=== PATIENT | male | born 1985 | race African-American/Black ===

== ENCOUNTER 2016-09-06 18:50 | Emergency (ER) | payer MEDICAID ==
[~2016-09-06] VITALS: Ht 175.3 cm; Wt 84.0 kg
[~2016-09-06 18:50] MED LIST: KEPP500 PO; PHEN100C4 PO
[2016-09-06] MEDS ORDERED: SODIUM CHLORIDE 0.9% 1,000 ML IV ONE (19:34)
[2016-09-06] MEDS ORDERED: LORAZEPAM 2MG/ML CPJ IV STA (19:34)
[2016-09-06] MEDS ORDERED: DIPHENHYDRAMINE 50MG/ML VIAL IV ONE (20:30)
[2016-09-06] MEDS ORDERED: HALOPERIDOL LACTATE 5MG/ML VIAL IM ONE (20:30)
[2016-09-06 20:34] LABS: BASOPHILS % 0.9 % (0.0-2.0); EOSINOPHILS % 1.6 % (0.0-5.0); HEMATOCRIT. 43.1 % (42.0-52.0); HEMOGLOBIN. 14.5 g/dL (14.0-18.0); LYMPHOCYTES % 25.8 % (20.0-50.0); MEAN CORPUSCULAR HEMOGLOBIN 31.3 pg (28.0-32.0); MEAN CORPUSCULAR VOLUME 92.8 fL (80.0-94.0); MEAN PLATELET VOLUME 7.9 fl (7.4-10.4); MONOCYTES % 8.8 % (2.0-8.0); NEUTROPHILS % 62.9 % (40.0-76.0); PLATELET 252 x1000/uL (130-400); RED BLOOD CELL COUNT 4.64 mill/uL (4.7-6.1); RED CELL DISTRIBUTION WIDTH 14.5 % (11.6-14.6)
[2016-09-06 20:39] LABS: INR 1.1; PROTHROMBIN TIME 11.1 sec
[2016-09-06 20:40] LABS: CHLORIDE 104 mEq/L (98-107)
[2016-09-06 20:42] LABS: CARBON DIOXIDE 26 mEq/L (21-32)
[2016-09-06 20:47] LABS: CREATINE KINASE 271 IU/L (39-308); ETHANOL BLOOD < 10 mg/dL
[2016-09-06] MEDS ORDERED: PHENYTOIN SODIUM 1,000 MG in SODIUM CHLORIDE 0.9% 100 ML IV ONE (21:00)
[2016-09-06] MEDS ORDERED: SODIUM CHLORIDE 0.9% 1000ML BAG (SEPSIS BOLUS) IV ONE (21:00)
[2016-09-06] MEDS ORDERED: LORAZEPAM 2MG/ML CPJ IV ONE (21:00)
[2016-09-06 22:28] LABS: CLARITY URINE CLEAR (CLEAR); COLOR URINE YELLOW (YELLOW); KETONES URINE NEGATIVE (NEGATIVE); LEUKOCYTE ESTERASE URINE 1+ (NEGATIVE); NITRITE URINE NEGATIVE (NEGATIVE); OCCULT BLOOD URINE 2+ (NEGATIVE); PH URINE 6.5 (4.5-8.0); PROTEIN URINE 1+ (NEGATIVE); SPECIFIC GRAVITY URINE 1.026 (1.005-1.030)
[2016-09-06 22:38] LABS: *AMPHETAMINES SCREEN URINE PRESUMTIVE POSITIVE (NEGATIVE); *BARBITURATES SCREEN URINE NEGATIVE (NEGATIVE); *BENZODIAZEPINES SCREEN URINE NEGATIVE (NEGATIVE); *COCAINE SCREEN URINE NEGATIVE (NEGATIVE); CANNABINOID URINE SCREEN PRESUMTIVE POSITIVE (NEGATIVE); METHADONE URINE SCREEN NEGATIVE (NEGATIVE); OPIATES URINE SCREEN NEGATIVE (NEGATIVE); PHENCYCLIDINE URINE SCREEN PRESUMTIVE POSITIVE (NEGATIVE)
[2016-09-06] MEDS ORDERED: CEFTRIAXONE 1 G PREMIX 50 ML IV ONE (23:45)
[2016-09-07] MEDS ORDERED: OLANZAPINE 10 MG/VIAL IM ONE (09:00)
[2016-09-07] MEDS ORDERED: LORAZEPAM 2MG/ML CPJ IM PRN (09:00)
[2016-09-07 18:34] VITALS: BP 113/68
== END 2016-09-07 19:33 | disposition home or self-care (01) ==
LOC: ER 19:44
DX: F22 Delusional disorders (principal); F16.10 Hallucinogen abuse, uncomplicated; F15.10 Other stimulant abuse, uncomplicated; F12.10 Cannabis abuse, uncomplicated; N39.0 Urinary tract infection, site not specified; R78.89 Finding of other specified substances, not normally found in blood; G40.909 Epilepsy, unspecified, not intractable, without status epilepticus; F17.200 Nicotine dependence, unspecified, uncomplicated; Z91.19 Patient's noncompliance with other medical treatment and regimen; Z88.6 Allergy status to analgesic agent
CPT/HCPCS: 36415; 71010; 80053; 80185; 80305; 80307; 80329; 81001; 82550; 83605; 85025; 85610; 87040; 93005; 96361; 96365; 96366; 96367; 96372; 96375; 99285; G0482; J0696; J1165; J1200; J1630; J2060; J3490; Z7610; J7030; J7050

== ENCOUNTER 2016-09-20 11:36 | Emergency (ER) | payer MEDICAID ==
[~2016-09-20] VITALS: Ht 175.3 cm; Wt 82.0 kg
[2016-09-20 11:50] VITALS: BP 128/74
== END 2016-09-20 13:24 | disposition home or self-care (01) ==
LOC: ER 13:12
DX: B86 Scabies (principal); J45.909 Unspecified asthma, uncomplicated; F17.200 Nicotine dependence, unspecified, uncomplicated; F12.10 Cannabis abuse, uncomplicated; Z88.6 Allergy status to analgesic agent; Z88.8 Allergy status to other drugs, medicaments and biological substances
CPT/HCPCS: 99282

== ENCOUNTER 2019-12-16 12:02 | Emergency (ER) | payer MEDICAID ==
[~2019-12-16] VITALS: Ht 175.3 cm; Wt 120.0 kg
[2019-12-16] MEDS ORDERED: FAMOTIDINE 20MG/2ML VIAL IV STA (12:22)
[2019-12-16] MEDS ORDERED: ONDANSETRON HCL 4MG/2ML INJ IV STA (12:22)
[2019-12-16] MEDS ORDERED: SODIUM CHLORIDE 0.9% 500 ML IV ONE (12:30)
[2019-12-16 13:04] LABS: BASOPHILS % 0.9 % (0.0-2.0); EOSINOPHILS % 0.8 % (0.0-5.0); HEMATOCRIT. 46.4 % (42.0-52.0); HEMOGLOBIN. 15.6 g/dL (14.0-18.0); LYMPHOCYTES % 28.3 % (20.0-50.0); MEAN CORPUSCULAR HEMOGLOBIN 31.6 pg (28.0-32.0); MEAN PLATELET VOLUME 9.1 fl (7.4-10.4); MONOCYTES % 12.5 % (2.0-8.0); NEUTROPHILS % 57.5 % (40.0-76.0); PLATELET 242 x1000/uL (130-400); RED BLOOD CELL COUNT 4.93 mill/uL (4.7-6.1); RED CELL DISTRIBUTION WIDTH 13.9 % (11.6-14.6)
[2019-12-16 13:14] LABS: CHLORIDE 99 mEq/L (98-107)
[2019-12-16 13:24] LABS: ETHANOL BLOOD < 10 mg/dL
[2019-12-16 15:07] VITALS: BP 140/92
== END 2019-12-16 15:09 | disposition home or self-care (01) ==
LOC: ER 12:15
DX: K29.00 Acute gastritis without bleeding (principal); F12.10 Cannabis abuse, uncomplicated; E78.00 Pure hypercholesterolemia, unspecified; J45.909 Unspecified asthma, uncomplicated; Z88.6 Allergy status to analgesic agent; Z79.899 Other long term (current) drug therapy
CPT/HCPCS: 36415; 70450; 74176; 80053; 80185; 80320; 83690; 85025; 93005; 96361; 96374; 96375; 99285; J2405; J3490; J7030; G0480

== ENCOUNTER 2020-02-04 18:13 | Emergency (ER) | payer MEDICAID ==
[~2020-02-04] VITALS: Ht 180.3 cm; Wt 108.0 kg
[~2020-02-04 18:13] MED LIST changes: +ALPR1TAB2 PO; +CARB100T4 PO; -KEPP500 PO
[2020-02-04 18:22] VITALS: BP 146/87
== END 2020-02-04 18:55 | disposition left against medical advice (07) ==
LOC: ER 18:13
DX: Z53.21 Procedure and treatment not carried out due to patient leaving prior to being seen by health care provider (principal)

== ENCOUNTER 2020-02-29 21:00 | Emergency (ER) | payer MEDICAID ==
[~2020-02-29] VITALS: Ht 175.3 cm; Wt 95.0 kg
[2020-02-29 21:11] VITALS: BP 137/95
== END 2020-03-01 02:32 | disposition left against medical advice (07) ==
LOC: ER 21:00
DX: R00.0 Tachycardia, unspecified (principal); Z53.21 Procedure and treatment not carried out due to patient leaving prior to being seen by health care provider
CPT/HCPCS: 93005

== ENCOUNTER 2020-04-16 11:28 | Emergency (ER) | payer MEDICAID ==
[~2020-04-16] VITALS: Ht 175.3 cm; Wt 97.0 kg
[~2020-04-16 11:28] MED LIST changes: +KEPPSOL GT; +METO-293 MT; +OMEP20CA14 MT
[2020-04-16] MEDS ORDERED: SODIUM CHLORIDE 0.9% 1,000 ML IV ONE (12:15)
[2020-04-16] MEDS ORDERED: LORAZEPAM 2MG/ML CPJ IV ONE (13:15)
[2020-04-16] MEDS ORDERED: LEVETIRACETAM 500MG PREMIX 100 ML IV ONE (13:15)
[2020-04-16 13:46] LABS: BASOPHILS % 0.5 % (0.0-2.0); EOSINOPHILS % 0.1 % (0.0-5.0); HEMATOCRIT. 43.8 % (42.0-52.0); HEMOGLOBIN. 14.6 g/dL (14.0-18.0); LYMPHOCYTES % 15.8 % (20.0-50.0); MEAN CORPUSCULAR HEMOGLOBIN 31.4 pg (28.0-32.0); MEAN CORPUSCULAR VOLUME 93.9 fL (80.0-94.0); MEAN PLATELET VOLUME 8.5 fl (7.4-10.4); MONOCYTES % 10.9 % (2.0-8.0); NEUTROPHILS % 72.7 % (40.0-76.0); PLATELET 295 x1000/uL (130-400); RED BLOOD CELL COUNT 4.67 mill/uL (4.7-6.1); RED CELL DISTRIBUTION WIDTH 14.5 % (11.6-14.6)
[2020-04-16 13:56] LABS: CHLORIDE 102 mEq/L (98-107)
[2020-04-16 13:59] LABS: ETHANOL BLOOD < 10 mg/dL
[2020-04-16] MEDS ORDERED: FAMO-135 MT (14:21)
[2020-04-16] MEDS ORDERED: ONDA4TAB11 PO (14:21)
[2020-04-16 15:43] LABS: INR 1.1; PROTHROMBIN TIME 11.3 sec (9.6-11.0)
[2020-04-16] MEDS ORDERED: ONDANSETRON 4MG ODT PO ONE (17:15)
[2020-04-16 17:23] LABS: CLARITY URINE CLEAR (CLEAR); COLOR URINE YELLOW (YELLOW); KETONES URINE 1+ (NEGATIVE); LEUKOCYTE ESTERASE URINE TRACE (NEGATIVE); NITRITE URINE NEGATIVE (NEGATIVE); OCCULT BLOOD URINE NEGATIVE (NEGATIVE); PH URINE >=9.0 (4.5-8.0); PROTEIN URINE 1+ (NEGATIVE); SPECIFIC GRAVITY URINE 1.032 (1.005-1.030)
[2020-04-16 17:35] VITALS: BP 114/77
[2020-04-16] MEDS ORDERED: ACETAMINOPHEN 325MG TABLET PO ONE (17:45)
[2020-04-16] MEDS ORDERED: ONDANSETRON HCL 4MG/2ML INJ IV ONE (17:45)
[2020-04-16 18:09] LABS: *AMPHETAMINES SCREEN URINE NEGATIVE (NEGATIVE); *BARBITURATES SCREEN URINE NEGATIVE (NEGATIVE); *BENZODIAZEPINES SCREEN URINE NEGATIVE (NEGATIVE); *COCAINE SCREEN URINE NEGATIVE (NEGATIVE); METHADONE URINE SCREEN NEGATIVE (NEGATIVE); OPIATES URINE SCREEN NEGATIVE (NEGATIVE)
[2020-04-16 18:10] LABS: CANNABINOID URINE SCREEN PRESUMTIVE POSITIVE (NEGATIVE); PHENCYCLIDINE URINE SCREEN NEGATIVE (NEGATIVE)
[2020-04-17] MEDS ORDERED: ONDA4TAB50 MT (04:56)
[2020-04-17] MEDS ORDERED: FAMO40TA7 MT (04:56)
[2020-04-17] MEDS ORDERED: FAMO40TA7 PO (05:27)
[2020-04-17] MEDS ORDERED: ONDA8TAB13 MT (05:27)
== END 2020-04-16 17:57 | disposition home or self-care (01) ==
LOC: ER 11:31 → CANBEDREQ 04-17 12:55
DX: R10.9 Unspecified abdominal pain (principal); G40.909 Epilepsy, unspecified, not intractable, without status epilepticus; E78.00 Pure hypercholesterolemia, unspecified; J45.909 Unspecified asthma, uncomplicated; F12.10 Cannabis abuse, uncomplicated; Z91.018 Allergy to other foods
CPT/HCPCS: 36415; 70450; 71045; 80053; 80185; 80305; 80320; 81003; 84484; 85025; 85610; 93005; 96365; 96375; 99285; J1953; J2060; J2405; J7030; Q0162; G0480

== ENCOUNTER 2020-04-16 22:50 | Emergency (ER) | payer MEDICAID ==
[~2020-04-16] VITALS: Ht 182.9 cm; Wt 95.0 kg
[~2020-04-16 22:50] MED LIST changes: +FAMO-135 MT; +ONDA4TAB11 PO
[2020-04-16] MEDS ORDERED: LEVETIRACETAM 1000MG PREMIX 100 ML IV ONE (23:15)
[2020-04-16] MEDS ORDERED: FAMOTIDINE 20MG TABLET PO ONE (23:15)
[2020-04-16] MEDS ORDERED: ONDANSETRON HCL 4MG/2ML INJ IV ONE (23:15)
[2020-04-16] MEDS ORDERED: SODIUM CHLORIDE 0.9% 1,000 ML IV ONE (23:15)
[2020-04-16 23:34] LABS: BASOPHILS % 0.7 % (0.0-2.0); EOSINOPHILS % 0.1 % (0.0-5.0); HEMATOCRIT. 44.7 % (42.0-52.0); HEMOGLOBIN. 15.1 g/dL (14.0-18.0); LYMPHOCYTES % 25.3 % (20.0-50.0); MEAN CORPUSCULAR HEMOGLOBIN 31.4 pg (28.0-32.0); MEAN CORPUSCULAR VOLUME 93.3 fL (80.0-94.0); MEAN PLATELET VOLUME 7.6 fl (7.4-10.4); MONOCYTES % 9.4 % (2.0-8.0); NEUTROPHILS % 64.5 % (40.0-76.0); PLATELET 286 x1000/uL (130-400); RED CELL DISTRIBUTION WIDTH 14.3 % (11.6-14.6)
[2020-04-16 23:41] LABS: CHLORIDE 103 mEq/L (98-107)
[2020-04-16 23:44] LABS: ETHANOL BLOOD < 10 mg/dL
[2020-04-17] MEDS ORDERED: ACETAMINOPHEN 325MG TABLET PO ONE (00:30)
[2020-04-17] MEDS ORDERED: POTASSIUM CHLORIDE 20MEQ TABLET SR PO ONE (01:45)
[2020-04-17] MEDS ORDERED: ONDANSETRON HCL 4MG/2ML INJ IV STA (02:25)
[2020-04-17] MEDS ORDERED: VISCOUS LIDOCAINE 2% 15 ML UDC PO STA (02:25)
[2020-04-17] MEDS ORDERED: MAGNESIUM/ALUMINUM HYDROXIDE/SIMETHICONE 30ML UDC PO STA (02:25)
[2020-04-17] MEDS ORDERED: KETOROLAC 15MG/ML VIAL IV ONE (02:30)
[2020-04-17 04:52] LABS: CLARITY URINE CLEAR (CLEAR); COLOR URINE DARK YELLOW (YELLOW); KETONES URINE 2+ (NEGATIVE); LEUKOCYTE ESTERASE URINE TRACE (NEGATIVE); NITRITE URINE NEGATIVE (NEGATIVE); OCCULT BLOOD URINE NEGATIVE (NEGATIVE); PH URINE 6.5 (4.5-8.0); PROTEIN URINE 1+ (NEGATIVE); SPECIFIC GRAVITY URINE 1.042 (1.005-1.030)
[2020-04-17] MEDS ORDERED: ONDA4TAB50 MT (04:56)
[2020-04-17] MEDS ORDERED: FAMO40TA7 MT (04:56)
[2020-04-17 05:05] LABS: *AMPHETAMINES SCREEN URINE NEGATIVE (NEGATIVE); *BARBITURATES SCREEN URINE NEGATIVE (NEGATIVE); *BENZODIAZEPINES SCREEN URINE NEGATIVE (NEGATIVE); *COCAINE SCREEN URINE NEGATIVE (NEGATIVE)
[2020-04-17 05:06] LABS: CANNABINOID URINE SCREEN PRESUMTIVE POSITIVE (NEGATIVE); METHADONE URINE SCREEN NEGATIVE (NEGATIVE); OPIATES URINE SCREEN NEGATIVE (NEGATIVE); PHENCYCLIDINE URINE SCREEN NEGATIVE (NEGATIVE)
[2020-04-17] MEDS ORDERED: FAMO40TA7 PO (05:27)
[2020-04-17] MEDS ORDERED: ONDA8TAB13 MT (05:27)
[2020-04-17 05:30] VITALS: BP 147/96
== END 2020-04-17 05:36 | disposition home or self-care (01) ==
LOC: ER 22:50
DX: R11.2 Nausea with vomiting, unspecified (principal); R56.9 Unspecified convulsions; F12.10 Cannabis abuse, uncomplicated; Z79.899 Other long term (current) drug therapy; Z91.018 Allergy to other foods
CPT/HCPCS: 36415; 80053; 80305; 80320; 81003; 85025; 93005; 96365; 96375; 96376; 99285; J1885; J1953; J2405; J7030; G0480

== ENCOUNTER 2020-05-19 08:02 | Inpatient (IN) | payer MEDICAID ==
[~2020-05-19] VITALS: Ht 180.3 cm; Wt 115.0 kg
[~2020-05-19 08:02] MED LIST changes: +FAMO40TA7 MT; +FAMO40TA7 PO; +ONDA4TAB50 MT; +ONDA8TAB13 MT
[2020-05-19] MEDS ORDERED: METOCLOPRAMIDE HCL 10MG/2ML VIAL IV STA (09:38)
[2020-05-19] MEDS ORDERED: FAMOTIDINE 20MG/2ML VIAL IV STA (09:38)
[2020-05-19] MEDS ORDERED: SODIUM CHLORIDE 0.9% 1,000 ML IV ONE (09:45)
[2020-05-19] MEDS ORDERED: LEVETIRACETAM 500MG PREMIX 100 ML IV STA (09:49)
[2020-05-19] MEDS ORDERED: LEVETIRACETAM 500MG PREMIX 100 ML IV ONE (10:00)
[2020-05-19 10:05] LABS: BASOPHILS % 0.9 % (0.0-2.0); EOSINOPHILS % 0.3 % (0.0-5.0); HEMATOCRIT. 48.6 % (42.0-52.0); HEMOGLOBIN. 16.1 g/dL (14.0-18.0); LYMPHOCYTES % 27.2 % (20.0-50.0); MEAN CORPUSCULAR HEMOGLOBIN 31.5 pg (28.0-32.0); MEAN CORPUSCULAR VOLUME 94.8 fL (80.0-94.0); MEAN PLATELET VOLUME 8.5 fl (7.4-10.4); MONOCYTES % 7.6 % (2.0-8.0); PLATELET 245 x1000/uL (130-400); RED BLOOD CELL COUNT 5.12 mill/uL (4.7-6.1); RED CELL DISTRIBUTION WIDTH 14.3 % (11.6-14.6)
[2020-05-19 10:09] LABS: CHLORIDE 101 mEq/L (98-107)
[2020-05-19 10:20] LABS: PHENOBARBITAL < 2.1 ug/mL (15.0-40.0); VALPROIC ACID < 3.0 ug/mL (50-100)
[2020-05-19 10:22] LABS: CARBAMAZEPINE < 0.5 ug/mL (4-12)
[2020-05-19 10:35] LABS: INR 1.1; PROTHROMBIN TIME 11.5 sec (9.6-11.0)
[2020-05-19] MEDS ORDERED: PHENYTOIN SODIUM 500 MG in SODIUM CHLORIDE 0.9% 50 ML IV ONE (11:30)
[2020-05-19 13:25] VITALS: BP 130/84
[2020-05-19] MEDS ORDERED: GUAIFENESIN 200MG/10ML SUGAR FREE UDC PO PRN (16:30)
[2020-05-19] MEDS ORDERED: FAMOTIDINE 20MG/2ML VIAL IV SCH (16:30)
[2020-05-19] MEDS ORDERED: LEVETIRACETAM 500 MG in SODIUM CHLORIDE 0.9% 100 ML IV SCH (16:30)
[2020-05-19] MEDS ORDERED: NA PHOS,M-B/NA PHOS,DI-BA ENEMA 118ML PR PRN (16:30)
[2020-05-19] MEDS ORDERED: DOCUSATE SODIUM 100MG CAPSULE PO PRN (16:30)
[2020-05-19] MEDS ORDERED: IPRATROPIUM/ALBUTEROL 0.5-3(2.5)MG/3ML NEB NEB PRN (16:30)
[2020-05-19] MEDS ORDERED: HYDROCODONE/ACETAMINOPHEN 5/325MG TABLET PO PRN (16:30)
[2020-05-19] MEDS ORDERED: DEXT 5%/0.45% NACL 1000ML 1,000 ML IV SCH (16:30)
[2020-05-19] MEDS ORDERED: DIPHENHYDRAMINE 50MG/ML VIAL IV PRN (16:30)
[2020-05-19] MEDS ORDERED: LORAZEPAM 2MG/ML CPJ IV PRN (16:30)
[2020-05-19] MEDS ORDERED: ONDANSETRON HCL 4MG/2ML INJ IV PRN (16:30)
[2020-05-19] MEDS ORDERED: ACETAMINOPHEN 650MG SUPP PR PRN (16:30)
[2020-05-19] MEDS ORDERED: ACETAMINOPHEN 325MG TABLET PO PRN (16:30)
[2020-05-19] MEDS ORDERED: CLONIDINE 0.1MG TABLET PO PRN (16:30)
[2020-05-19] MEDS ORDERED: MAGNESIUM/ALUMINUM HYDROXIDE/SIMETHICONE 30ML UDC PO PRN (16:30)
[2020-05-19] MEDS ORDERED: LEVETIRACETAM 500MG PREMIX 100 ML IV SCH (21:00)
[2020-05-19] MEDS ORDERED: PHENYTOIN SODIUM 100MG/2ML VIAL IV SCH (22:00)
== END 2020-05-19 15:00 | disposition home or self-care (01) | DRG 53 ==
LOC: ER 08:02 → 6EST 12:34 → ENRESERV 13:22
PROVIDERS: ADMIT Internal Medicine; ATTEND Internal Medicine
DX: R56.9 Unspecified convulsions (principal); K21.9 Gastro-esophageal reflux disease without esophagitis; I10 Essential (primary) hypertension; J45.909 Unspecified asthma, uncomplicated; Z91.018 Allergy to other foods; Z79.899 Other long term (current) drug therapy
CPT/HCPCS: 36415; 80053; 80156; 80165; 80184; 80185; 85025; 93005; 99285; J1165; J1953; J2765; J3490; J7030

== ENCOUNTER 2020-05-21 09:37 | Emergency (ER) | payer MEDICAID ==
[~2020-05-21] VITALS: Ht 175.3 cm; Wt 104.0 kg
[2020-05-21] MEDS: ONDANSETRON HCL 4MG/2ML INJ IV STA (09:56)
[2020-05-21 10:27] LABS: BASOPHILS % 0.6 % (0.0-2.0); EOSINOPHILS % 0.1 % (0.0-5.0); HEMATOCRIT. 46.8 % (42.0-52.0); HEMOGLOBIN. 15.9 g/dL (14.0-18.0); LYMPHOCYTES % 17.9 % (20.0-50.0); MEAN CORPUSCULAR HEMOGLOBIN 32.1 pg (28.0-32.0); MEAN CORPUSCULAR VOLUME 94.7 fL (80.0-94.0); MEAN PLATELET VOLUME 7.7 fl (7.4-10.4); MONOCYTES % 7.5 % (2.0-8.0); NEUTROPHILS % 73.9 % (40.0-76.0); PLATELET 266 x1000/uL (130-400); RED BLOOD CELL COUNT 4.94 mill/uL (4.7-6.1); RED CELL DISTRIBUTION WIDTH 14.1 % (11.6-14.6)
[2020-05-21 10:33] LABS: CHLORIDE 102 mEq/L (98-107)
[2020-05-21 10:36] LABS: INR 1.1; PROTHROMBIN TIME 11.4 sec (9.6-11.0)
[2020-05-21 10:37] LABS: ETHANOL BLOOD < 10 mg/dL
[2020-05-21] MEDS ORDERED: KCL 20MEQ/100ML PREMIX 100 ML IV SCH (12:00)
[2020-05-21] MEDS: ONDANSETRON HCL 4MG/2ML INJ IM ONE (12:40)
[2020-05-21] MEDS: FAMOTIDINE 20MG/2ML VIAL IV STA (12:40)
[2020-05-21] MEDS: SODIUM CHLORIDE 0.9% 1,000 ML IV ONE (12:40)
[2020-05-21] MEDS: MAGNESIUM/ALUMINUM HYDROXIDE/SIMETHICONE 30ML UDC PO ONE (12:40)
[2020-05-21] MEDS: PHENYTOIN SODIUM 100MG/2ML VIAL IV ONE (12:41)
[2020-05-21] MEDS: ONDANSETRON HCL 4MG/2ML INJ IV NR (14:44)
[2020-05-21] MEDS: PANTOPRAZOLE SODIUM 40 MG/VIAL IV NR (14:45)
[2020-05-21 19:30] VITALS: BP 129/79
== END 2020-05-21 20:13 ==
LOC: ER 10:12
DX: R10.13 Epigastric pain (principal); K92.0 Hematemesis; K21.9 Gastro-esophageal reflux disease without esophagitis; G40.909 Epilepsy, unspecified, not intractable, without status epilepticus; J45.909 Unspecified asthma, uncomplicated; I10 Essential (primary) hypertension; F12.10 Cannabis abuse, uncomplicated; F17.210 Nicotine dependence, cigarettes, uncomplicated; Z91.018 Allergy to other foods
CPT/HCPCS: 36415; 76705; 80053; 80185; 80320; 83690; 85025; 85610; 93005; 96361; 96372; 96374; 96375; 96376; 99285; C9113; J1165; J2405; J3490; J7030; Z7610; J3480; G0480

== ENCOUNTER 2020-06-01 12:20 | Emergency (ER) | payer MEDICAID ==
[~2020-06-01] VITALS: Ht 182.9 cm; Wt 100.0 kg
[2020-06-01] MEDS ORDERED: SODIUM CHLORIDE 0.9% 1,000 ML IV ONE (13:00)
[2020-06-01] MEDS ORDERED: LEVETIRACETAM 1000MG PREMIX 100 ML IV NR (13:00)
[2020-06-01 13:21] LABS: BASOPHILS % 0.8 % (0.0-2.0); EOSINOPHILS % 3.3 % (0.0-5.0); LYMPHOCYTES % 19.7 % (20.0-50.0); MEAN CORPUSCULAR HEMOGLOBIN 33.4 pg (28.0-32.0); MEAN PLATELET VOLUME 7.6 fl (7.4-10.4); MONOCYTES % 9.1 % (2.0-8.0); NEUTROPHILS % 67.1 % (40.0-76.0); PLATELET 177 x1000/uL (130-400); RED BLOOD CELL COUNT 4.48 mill/uL (4.7-6.1); RED CELL DISTRIBUTION WIDTH 14.4 % (11.6-14.6)
[2020-06-01 13:28] LABS: CHLORIDE 109 mEq/L (98-107)
[2020-06-01 13:33] LABS: ETHANOL BLOOD < 10 mg/dL
[2020-06-01 16:44] LABS: CLARITY URINE CLEAR (CLEAR); COLOR URINE YELLOW (YELLOW); KETONES URINE TRACE (NEGATIVE); LEUKOCYTE ESTERASE URINE TRACE (NEGATIVE); NITRITE URINE NEGATIVE (NEGATIVE); OCCULT BLOOD URINE NEGATIVE (NEGATIVE); PROTEIN URINE 1+ (NEGATIVE); UROBILINOGEN URINE 0.2 E.U./dL (0.2-1.0)
[2020-06-01 17:02] LABS: *AMPHETAMINES SCREEN URINE PRESUMTIVE POSITIVE (NEGATIVE); *BARBITURATES SCREEN URINE NEGATIVE (NEGATIVE); *BENZODIAZEPINES SCREEN URINE PRESUMTIVE POSITIVE (NEGATIVE); *COCAINE SCREEN URINE NEGATIVE (NEGATIVE); METHADONE URINE SCREEN NEGATIVE (NEGATIVE); OPIATES URINE SCREEN NEGATIVE (NEGATIVE)
[2020-06-01 17:03] LABS: CANNABINOID URINE SCREEN PRESUMTIVE POSITIVE (NEGATIVE); PHENCYCLIDINE URINE SCREEN NEGATIVE (NEGATIVE)
[2020-06-01] MEDS ORDERED: LEVE1000 MT (17:08)
[2020-06-01] MEDS ORDERED: PHEN100C4 PO (17:09)
[2020-06-01 17:30] VITALS: BP 124/82
== END 2020-06-01 17:30 | disposition home or self-care (01) ==
LOC: ER 12:25
DX: G40.909 Epilepsy, unspecified, not intractable, without status epilepticus (principal); K21.9 Gastro-esophageal reflux disease without esophagitis; I10 Essential (primary) hypertension; J45.909 Unspecified asthma, uncomplicated; F12.10 Cannabis abuse, uncomplicated; F17.210 Nicotine dependence, cigarettes, uncomplicated; Z91.018 Allergy to other foods
CPT/HCPCS: 36415; 80053; 80305; 80320; 81003; 84132; 85025; 96365; 99285; J1953; Z7610; G0480

== ENCOUNTER 2020-07-07 10:39 | Emergency (ER) | payer MEDICAID ==
[~2020-07-07] VITALS: Ht 175.3 cm; Wt 103.0 kg
[~2020-07-07 10:39] MED LIST changes: +LEVE1000 MT
[2020-07-07 11:00] VITALS: BP 122/60
[2020-07-07] MEDS ORDERED: METHYLPREDNISOLONE SOD SUCC 125 MG/2 ML VIAL IV STA (11:06)
[2020-07-07] MEDS ORDERED: ALBUTEROL (0.083%) 2.5MG/3ML NEB HHN STA (11:06)
[2020-07-07] MEDS ORDERED: IPRATROPIUM BROMIDE (0.02%) 0.5MG/2.5ML NEB HHN STA (11:06)
[2020-07-07] MEDS ORDERED: SODIUM CHLORIDE 0.9% 1,000 ML IV ONE (11:15)
[2020-07-07] MEDS ORDERED: LEVETIRACETAM 1000MG PREMIX 100 ML IV ONE (11:15)
[2020-07-07] MEDS ORDERED: PHENYTOIN SODIUM 1,000 MG in SODIUM CHLORIDE 0.9% 100 ML IV ONE (12:00)
[2020-07-07] MEDS ORDERED: LEVE1000 MT (14:35)
[2020-07-07] MEDS ORDERED: PHEN300C6 MT (14:35)
[2020-07-07] MEDS ORDERED: P50 MT (14:37)
[2020-07-07] MEDS ORDERED: ALBU6.7H9 INH (14:37)
== END 2020-07-07 15:13 | disposition home or self-care (01) ==
LOC: ER 10:39
DX: J45.901 Unspecified asthma with (acute) exacerbation (principal); G40.909 Epilepsy, unspecified, not intractable, without status epilepticus; K21.9 Gastro-esophageal reflux disease without esophagitis; I10 Essential (primary) hypertension; Z91.018 Allergy to other foods
CPT/HCPCS: 36415; 71045; 80185; 94640; 96365; 96367; 96375; 99284; J1165; J1953; J2930; J7030; J7040; J7050; Z7610

== ENCOUNTER 2020-07-20 03:01 | Emergency (ER) | payer MEDICAID ==
[~2020-07-20] VITALS: Ht 175.3 cm; Wt 92.0 kg
[~2020-07-20 03:01] MED LIST changes: +ALBU6.7H9 INH; +P50 MT; +PHEN300C6 MT
[2020-07-20] MEDS ORDERED: FAMOTIDINE 20MG/2ML VIAL IV STA (04:52)
[2020-07-20] MEDS ORDERED: MORPHINE SULFATE 4 MG/ML CPJ (NOT FOR IM USE) IV STA (04:52)
[2020-07-20] MEDS ORDERED: METOCLOPRAMIDE HCL 10MG/2ML VIAL IV STA (04:52)
[2020-07-20] MEDS ORDERED: SODIUM CHLORIDE 0.9% 1,000 ML IV ONE (05:00)
[2020-07-20 05:21] LABS: BASOPHILS % 0.9 % (0.0-2.0); HEMATOCRIT. 42.6 % (42.0-52.0); HEMOGLOBIN. 14.1 g/dL (14.0-18.0); LYMPHOCYTES % 22.5 % (20.0-50.0); MEAN CORPUSCULAR VOLUME 93.5 fL (80.0-94.0); MEAN PLATELET VOLUME 7.4 fl (7.4-10.4); MONOCYTES % 13.8 % (2.0-8.0); NEUTROPHILS % 61.8 % (40.0-76.0); PLATELET 269 x1000/uL (130-400); RED BLOOD CELL COUNT 4.56 mill/uL (4.7-6.1); RED CELL DISTRIBUTION WIDTH 14.5 % (11.6-14.6)
[2020-07-20 05:28] LABS: CHLORIDE 102 mEq/L (98-107)
[2020-07-20] MEDS ORDERED: ONDA4TAB5 MT (06:26)
[2020-07-20] MEDS ORDERED: ONDANSETRON HCL 4MG/2ML INJ IV ONE (06:45)
[2020-07-20 08:08] VITALS: BP 118/66
== END 2020-07-20 08:21 | disposition home or self-care (01) ==
LOC: ER 03:01
DX: R10.13 Epigastric pain (principal); I10 Essential (primary) hypertension; G40.909 Epilepsy, unspecified, not intractable, without status epilepticus; K21.9 Gastro-esophageal reflux disease without esophagitis; J45.909 Unspecified asthma, uncomplicated; Z87.19 Personal history of other diseases of the digestive system; Z91.018 Allergy to other foods
CPT/HCPCS: 36415; 80053; 83690; 85025; 96361; 96374; 96375; 99284; J2270; J2405; J2765; J3490; J7030

== ENCOUNTER 2020-08-04 06:22 | Emergency (ER) | payer MEDICAID ==
[~2020-08-04] VITALS: Ht 154.9 cm; Wt 90.0 kg
[~2020-08-04 06:22] MED LIST changes: +ONDA4TAB5 MT
[2020-08-04] MEDS ORDERED: ONDANSETRON HCL 4MG/2ML INJ IV STA (06:46)
[2020-08-04] MEDS ORDERED: MORPHINE SULFATE 4 MG/ML CPJ (NOT FOR IM USE) IV STA (06:46)
[2020-08-04] MEDS ORDERED: SODIUM CHLORIDE 0.9% 1,000 ML IV ONE (07:00)
[2020-08-04] MEDS ORDERED: LEVETIRACETAM 1000MG PREMIX 100 ML IV ONE (07:00)
[2020-08-04 08:03] LABS: BASOPHILS % 0.6 % (0.0-2.0); EOSINOPHILS % 0.1 % (0.0-5.0); HEMATOCRIT. 46.8 % (42.0-52.0); HEMOGLOBIN. 15.8 g/dL (14.0-18.0); LYMPHOCYTES % 19.8 % (20.0-50.0); MEAN CORPUSCULAR HEMOGLOBIN 31.7 pg (28.0-32.0); MEAN CORPUSCULAR VOLUME 93.7 fL (80.0-94.0); MEAN PLATELET VOLUME 7.7 fl (7.4-10.4); MONOCYTES % 10.4 % (2.0-8.0); NEUTROPHILS % 69.1 % (40.0-76.0); PLATELET 296 x1000/uL (130-400); RED BLOOD CELL COUNT 4.99 mill/uL (4.7-6.1); RED CELL DISTRIBUTION WIDTH 14.4 % (11.6-14.6)
[2020-08-04 08:09] LABS: CHLORIDE 99 mEq/L (98-107)
[2020-08-04 08:12] LABS: ETHANOL BLOOD < 10 mg/dL
[2020-08-04] MEDS ORDERED: PHENYTOIN SODIUM 1,000 MG in SODIUM CHLORIDE 0.9% 100 ML IV ONE (08:30)
[2020-08-04 09:28] LABS: CLARITY URINE CLEAR (CLEAR); COLOR URINE DARK YELLOW (YELLOW); KETONES URINE 3+ (NEGATIVE); LEUKOCYTE ESTERASE URINE 1+ (NEGATIVE); NITRITE URINE NEGATIVE (NEGATIVE); OCCULT BLOOD URINE NEGATIVE (NEGATIVE); PH URINE 8.5 (4.5-8.0); PROTEIN URINE 2+ (NEGATIVE); SPECIFIC GRAVITY URINE 1.036 (1.005-1.030)
[2020-08-04] MEDS ORDERED: LORAZEPAM 2MG/ML CPJ IV ONE (09:30)
[2020-08-04] MEDS ORDERED: ONDANSETRON HCL 4MG/2ML INJ IV ONE (09:30)
[2020-08-04 09:44] LABS: *AMPHETAMINES SCREEN URINE NEGATIVE (NEGATIVE); *BARBITURATES SCREEN URINE NEGATIVE (NEGATIVE); *BENZODIAZEPINES SCREEN URINE NEGATIVE (NEGATIVE); *COCAINE SCREEN URINE NEGATIVE (NEGATIVE); METHADONE URINE SCREEN NEGATIVE (NEGATIVE); OPIATES URINE SCREEN PRESUMTIVE POSITIVE (NEGATIVE)
[2020-08-04] MEDS ORDERED: PHEN300C6 MT (09:44)
[2020-08-04] MEDS ORDERED: ONDA4TAB5 MT (09:44)
[2020-08-04] MEDS ORDERED: LEVE1000 MT (09:44)
[2020-08-04] MEDS ORDERED: OMEP20CA14 MT (09:44)
[2020-08-04 09:45] LABS: CANNABINOID URINE SCREEN PRESUMTIVE POSITIVE (NEGATIVE); PHENCYCLIDINE URINE SCREEN NEGATIVE (NEGATIVE)
[2020-08-04 10:17] VITALS: BP 126/70
== END 2020-08-04 10:25 | disposition home or self-care (01) ==
LOC: ER 06:33
DX: G40.909 Epilepsy, unspecified, not intractable, without status epilepticus (principal); R10.13 Epigastric pain; R11.10 Vomiting, unspecified; J45.909 Unspecified asthma, uncomplicated; K21.9 Gastro-esophageal reflux disease without esophagitis; F41.9 Anxiety disorder, unspecified; F15.10 Other stimulant abuse, uncomplicated; Z91.14 Patient's other noncompliance with medication regimen; Z91.018 Allergy to other foods
CPT/HCPCS: 36415; 80053; 80185; 80305; 80320; 81003; 83690; 85025; 96365; 96375; 96376; 99284; J1165; J1953; J2060; J2270; J2405; J7030; J7050; Z7610; G0480

== ENCOUNTER 2021-01-04 02:17 | Inpatient (IN) | payer MEDICAID ==
[~2021-01-04] VITALS: Ht 170.2 cm; Wt 86.0 kg
[2021-01-04] MEDS ORDERED: MORPHINE SULFATE 4 MG/ML CPJ (NOT FOR IM USE) IV STA (04:20)
[2021-01-04] MEDS ORDERED: ONDANSETRON HCL 4MG/2ML INJ IV STA (04:20)
[2021-01-04] MEDS ORDERED: LEVETIRACETAM 500MG PREMIX 100 ML IV ONE ×2 (04:30→06:45)
[2021-01-04] MEDS ORDERED: LORAZEPAM 2MG/ML CPJ IV ONE ×2 (04:30→06:45)
[2021-01-04] MEDS ORDERED: SODIUM CHLORIDE 0.9% 1,000 ML IV ONE (04:30)
[2021-01-04 04:43] LABS: BASOPHILS % 0.7 % (0.0-2.0); EOSINOPHILS % 0.1 % (0.0-5.0); HEMATOCRIT. 53.6 % (42.0-52.0); HEMOGLOBIN. 16.4 g/dL (14.0-18.0); LYMPHOCYTES % 30.9 % (20.0-50.0); MEAN CORPUSCULAR HEMOGLOBIN 32.5 pg (28.0-32.0); MEAN CORPUSCULAR VOLUME 106.4 fL (80.0-94.0); MEAN PLATELET VOLUME 8.6 fl (7.4-10.4); NEUTROPHILS % 61.3 % (40.0-76.0); PLATELET 275 x1000/uL (130-400); RED BLOOD CELL COUNT 5.04 mill/uL (4.7-6.1)
[2021-01-04 05:15] LABS: CHLORIDE 108 mEq/L (98-107)
[2021-01-04] MEDS ORDERED: PHEN100C4 MT (05:56)
[2021-01-04] MEDS ORDERED: LEVE1000 MT (05:56)
[2021-01-04] MEDS ORDERED: ACETAMINOPHEN 650MG/20.3ML UDC GT PRN (11:00)
[2021-01-04] MEDS ORDERED: CLONIDINE 0.1MG TABLET PO PRN (11:00)
[2021-01-04] MEDS ORDERED: IPRATROPIUM/ALBUTEROL 0.5-3(2.5)MG/3ML NEB NEB PRN (11:00)
[2021-01-04] MEDS ORDERED: DIPHENHYDRAMINE 50MG/ML VIAL IV PRN (11:00)
[2021-01-04] MEDS ORDERED: ACETAMINOPHEN 650MG SUPP PR PRN (11:00)
[2021-01-04] MEDS ORDERED: MAGNESIUM/ALUMINUM HYDROXIDE/SIMETHICONE 30ML UDC PO PRN (11:00)
[2021-01-04] MEDS ORDERED: NA PHOS,M-B/NA PHOS,DI-BA ENEMA 118ML PR PRN (11:00)
[2021-01-04] MEDS ORDERED: NALOXONE HCL 0.4MG/ML VIAL IV PRN (11:30)
[2021-01-04 12:20] LABS: BG BASE EXCESS -2.2 mmol/L (-2.0-2.0); BG CARBOXYHEMOGLOBIN 0.8 % (0.5-1.5); BG DEOXYHEMOGLOBIN 3.6 % (0.0-5.0); BG FRACTION INSPIRED OXYGEN 21; BG HCO3 ACT 22.2 mmol/L (22.0-26.0); BG METHEMOGLOBIN 0.4 % (0.0-1.5); BG OXYGEN SATURATION 96.4 % (92.0-98.5); BG OXYHEMOGLOBIN 95.2 % (94.0-97.0); BG PCO2 37.4 mmHg (35.0-45.0); BG PH 7.392 (7.350-7.450); BG PO2 88.9 mmHg (75.0-100.0); BG SAMPLE SITE LEFT BRACHIAL; BG TOTAL HEMOGLOBIN 14.7 g/dL (12.0-18.0); BG VENT MODE ROOM AIR
[2021-01-04] MEDS: PIPERACILLIN/TAZOBACTAM 3.375 G in DEXTROSE 5% WATER 50 ML IV SCH ×2 (13:31→20:06)
[2021-01-04] MEDS: HYDROCODONE/ACETAMINOPHEN 5/325MG TABLET PO PRN ×2 (13:33→20:06)
[2021-01-04] MEDS: ENOXAPARIN 40MG/0.4ML SYR SUBCUT SCH (13:33)
[2021-01-04] MEDS: DEXT 5%/0.45% NACL 1000ML 1,000 ML IV SCH (13:40)
[2021-01-04 15:08] LABS: CLARITY URINE TURBID (CLEAR); COLOR URINE YELLOW (YELLOW); KETONES URINE 2+ (NEGATIVE); LEUKOCYTE ESTERASE URINE NEGATIVE (NEGATIVE); NITRITE URINE NEGATIVE (NEGATIVE); OCCULT BLOOD URINE NEGATIVE (NEGATIVE); PH URINE 5.5 (4.5-8.0); PROTEIN URINE TRACE (NEGATIVE); SPECIFIC GRAVITY URINE 1.021 (1.005-1.030); UROBILINOGEN URINE 0.2 E.U./dL (0.2-1.0)
[2021-01-04 15:14] LABS: CHLORIDE 106 mEq/L (98-107); INR 1.1; PROTHROMBIN TIME 11.4 sec (9.6-11.0)
[2021-01-04 15:23] LABS: CREATINE KINASE 633 IU/L (39-308)
[2021-01-04 15:25] LABS: CREATINE KINASE MB FRACTION 3.8 ng/mL (0.5-3.6)
[2021-01-04 15:52] LABS: *BARBITURATES SCREEN URINE NEGATIVE (NEGATIVE); *BENZODIAZEPINES SCREEN URINE NEGATIVE (NEGATIVE); *COCAINE SCREEN URINE PRESUMTIVE POSITIVE (NEGATIVE); OPIATES URINE SCREEN NEGATIVE (NEGATIVE); PHENCYCLIDINE URINE SCREEN NEGATIVE (NEGATIVE)
[2021-01-04 15:53] LABS: CANNABINOID URINE SCREEN PRESUMTIVE POSITIVE (NEGATIVE)
[2021-01-04 15:58] LABS: *AMPHETAMINES SCREEN URINE NEGATIVE (NEGATIVE)
[2021-01-04 15:59] LABS: METHADONE URINE SCREEN NEGATIVE (NEGATIVE)
[2021-01-04] MEDS ORDERED: LEVETIRACETAM 500 MG in SODIUM CHLORIDE 0.9% 100 ML IV SCH (18:00)
[2021-01-04] MEDS: FOLIC ACID 1MG TABLET PO SCH (18:26)
[2021-01-04] MEDS: ONDANSETRON HCL 4MG/2ML INJ IV PRN (18:26)
[2021-01-04] MEDS: THIAMINE HCL 100MG TABLET PO SCH (18:27)
[2021-01-04] MEDS: MULTIVITAMINS,THER W-MINERALS TABLET PO SCH (18:27)
[2021-01-04 19:30] VITALS: BP 98/46
[2021-01-04 20:00] VITALS: BP 102/46
[2021-01-04] MEDS: LEVETIRACETAM 500MG PREMIX 100 ML IV SCH (20:58)
[2021-01-04] MEDS: PHENYTOIN SODIUM EXTENDED 100MG CAPSULE PO SCH (20:58)
[2021-01-04] MEDS: FAMOTIDINE 20MG TABLET PO SCH (20:58)
[2021-01-04 23:55] VITALS: BP 106/52
[2021-01-05 01:54] LABS: CREATINE KINASE MB FRACTION 5.7 ng/mL (0.5-3.6)
[2021-01-05 02:04] LABS: CREATINE KINASE 1122 IU/L (39-308)
[2021-01-05 04:00] VITALS: BP 115/60
[2021-01-05] MEDS: PIPERACILLIN/TAZOBACTAM 3.375 G in DEXTROSE 5% WATER 50 ML IV SCH ×3 (04:51→23:31)
[2021-01-05] MEDS: DEXT 5%/0.45% NACL 1000ML 1,000 ML IV SCH ×2 (05:13→15:04)
[2021-01-05] MEDS: PHENYTOIN SODIUM EXTENDED 100MG CAPSULE PO SCH ×3 (06:09→21:00)
[2021-01-05] MEDS: MULTIVITAMINS,THER W-MINERALS TABLET PO SCH (09:00)
[2021-01-05] MEDS: FOLIC ACID 1MG TABLET PO SCH (09:00)
[2021-01-05] MEDS: THIAMINE HCL 100MG TABLET PO SCH (09:00)
[2021-01-05] MEDS: HYDROCODONE/ACETAMINOPHEN 5/325MG TABLET PO PRN ×2 (11:01→15:03)
[2021-01-05] MEDS: ONDANSETRON HCL 4MG/2ML INJ IV PRN (11:01)
[2021-01-05 11:44] LABS: CHLORIDE 106 mEq/L (98-107)
[2021-01-05 11:53] LABS: HDL CHOLESTEROL 61 mg/dL (40-59); LDL CHOLESTEROL 107 mg/dL (5-100); T4 FREE 0.91 ng/dL (0.76-1.46)
[2021-01-05 12:00] VITALS: BP 120/63
[2021-01-05] MEDS: ENOXAPARIN 40MG/0.4ML SYR SUBCUT SCH (12:00)
[2021-01-05] MEDS: LEVETIRACETAM 500MG PREMIX 100 ML IV SCH ×2 (13:49→23:53)
[2021-01-05] MEDS: ONDANSETRON HCL 4MG/2ML INJ IV NR ×2 (15:10→21:00)
[2021-01-05 16:00] VITALS: BP 123/67
[2021-01-05] MEDS: LORAZEPAM 2MG/ML CPJ IV PRN (16:13)
[2021-01-05 20:00] VITALS: BP 122/77
[2021-01-05] MEDS: FAMOTIDINE 20MG TABLET PO SCH (21:00)
[2021-01-05] MEDS: MORPHINE SULFATE 2 MG/ML CPJ (NOT FOR IM USE) IV PRN (23:32)
[2021-01-06] VITALS: BP 132/72
[2021-01-06] MEDS: LORAZEPAM 2MG/ML CPJ IV PRN (01:19)
[2021-01-06 04:00] VITALS: BP 128/77
[2021-01-06] MEDS: PIPERACILLIN/TAZOBACTAM 3.375 G in DEXTROSE 5% WATER 50 ML IV SCH ×2 (05:49→06:49)
[2021-01-06] MEDS: PHENYTOIN SODIUM EXTENDED 100MG CAPSULE PO SCH (06:50)
[2021-01-06] MEDS: DEXT 5%/0.45% NACL 1000ML 1,000 ML IV SCH (06:51)
[2021-01-06 08:00] VITALS: BP 130/77
[2021-01-06] MEDS: ONDANSETRON HCL 4MG/2ML INJ IV PRN (08:48)
[2021-01-06] MEDS: LEVETIRACETAM 500MG PREMIX 100 ML IV SCH (08:48)
[2021-01-06 08:55] VITALS: BP 130/77
[2021-01-06] MEDS: MORPHINE SULFATE 2 MG/ML CPJ (NOT FOR IM USE) IV PRN (08:55)
[2021-01-06] MEDS: THIAMINE HCL 100MG TABLET PO SCH (09:00)
[2021-01-06] MEDS: MULTIVITAMINS,THER W-MINERALS TABLET PO SCH (09:00)
[2021-01-06] MEDS: FOLIC ACID 1MG TABLET PO SCH (09:00)
== END 2021-01-06 10:35 | disposition left against medical advice (07) | DRG 241 ==
LOC: ER 02:17 → EDBEDREQTM 07:43 → MICUSO 08:46 → EDBEDREQTM 08:49 → EDBEDREQ 08:49 → 8WST 17:55
PROVIDERS: ADMIT Internal Medicine; ATTEND Internal Medicine
PROC: 4A10X4Z Monitoring of Central Nervous Electrical Activity, External Approach (ICD-10-PCS; principal; 2021-01-06)
DX: K29.70 Gastritis, unspecified, without bleeding (principal); M62.82 Rhabdomyolysis; G40.909 Epilepsy, unspecified, not intractable, without status epilepticus; K52.9 Noninfective gastroenteritis and colitis, unspecified; E83.52 Hypercalcemia; F12.90 Cannabis use, unspecified, uncomplicated; F14.90 Cocaine use, unspecified, uncomplicated; Z20.822 Contact with and (suspected) exposure to COVID-19; F17.210 Nicotine dependence, cigarettes, uncomplicated; J45.909 Unspecified asthma, uncomplicated; R73.9 Hyperglycemia, unspecified; F41.9 Anxiety disorder, unspecified; F10.139 Alcohol abuse with withdrawal, unspecified; Y90.9 Presence of alcohol in blood, level not specified; Z79.899 Other long term (current) drug therapy; Z82.49 Family history of ischemic heart disease and other diseases of the circulatory system; Z91.018 Allergy to other foods
CPT/HCPCS: 36415; 36600; 70551; 74018; 76700; 80048; 80053; 80061; 80185; 80305; 81003; 82375; 82542; 82550; 82553; 82805; 84439; 84443; 84484; 85025; 87426; 93306; 93970; 95816; 99285; C1893; J1650; J1953; J2060; J2270; J2405; J2543; J7030; J7050; J7060

== ENCOUNTER 2021-01-10 08:32 | Emergency (ER) | payer MEDICAID ==
[~2021-01-10] VITALS: Ht 175.3 cm; Wt 100.0 kg
[~2021-01-10 08:32] MED LIST changes: +PHEN100C4 MT
[2021-01-10 08:56] VITALS: BP 137/90
== END 2021-01-10 10:28 | disposition left against medical advice (07) ==
LOC: ER 08:32
DX: R10.9 Unspecified abdominal pain (principal); Z53.21 Procedure and treatment not carried out due to patient leaving prior to being seen by health care provider
CPT/HCPCS: 93005

== ENCOUNTER 2021-04-24 10:48 | Emergency (ER) | payer MEDICAID ==
[~2021-04-24] VITALS: Ht 185.4 cm; Wt 91.0 kg
[2021-04-24 11:15] VITALS: BP 139/93
[2021-04-24] MEDS ORDERED: LEVETIRACETAM 1000MG PREMIX 100 ML IV ONE (11:15)
[2021-04-24 11:34] LABS: CHLORIDE 107 mEq/L (98-107)
[2021-04-24 11:38] LABS: ETHANOL BLOOD < 10 mg/dL
== END 2021-04-24 12:48 | disposition left against medical advice (07) ==
LOC: ER 10:48
DX: G40.909 Epilepsy, unspecified, not intractable, without status epilepticus (principal); K21.9 Gastro-esophageal reflux disease without esophagitis; F41.9 Anxiety disorder, unspecified; J45.909 Unspecified asthma, uncomplicated; F12.10 Cannabis abuse, uncomplicated; Z91.018 Allergy to other foods; Z88.6 Allergy status to analgesic agent
CPT/HCPCS: 36415; 80053; 80185; 80320; 93005; 96365; 99284; J1953; G0480

== ENCOUNTER 2021-05-05 16:25 | Emergency (ER) | payer MEDICAID ==
[~2021-05-05] VITALS: Ht 175.3 cm; Wt 78.0 kg
[2021-05-05 16:31] VITALS: BP 113/65
[2021-05-05] MEDS ORDERED: FAMOTIDINE 20MG/2ML VIAL IV STA (17:18)
[2021-05-05] MEDS ORDERED: PANTOPRAZOLE SODIUM 40 MG/VIAL IV STA (17:18)
[2021-05-05] MEDS ORDERED: ONDANSETRON HCL 4MG/2ML INJ IV STA (17:18)
[2021-05-05] MEDS ORDERED: KETOROLAC 30MG/ML VIAL IV ONE (17:30)
[2021-05-05] MEDS ORDERED: SODIUM CHLORIDE 0.9% 1,000 ML IV ONE (17:30)
[2021-05-05 17:48] LABS: BASOPHILS % 0.6 % (0.0-2.0); EOSINOPHILS % 0.3 % (0.0-5.0); HEMATOCRIT. 38.5 % (42.0-52.0); LYMPHOCYTES % 22.3 % (20.0-50.0); MEAN CORPUSCULAR HEMOGLOBIN 32.3 pg (28.0-32.0); MEAN CORPUSCULAR VOLUME 95.2 fL (80.0-94.0); MEAN PLATELET VOLUME 7.7 fl (7.4-10.4); MONOCYTES % 8.9 % (2.0-8.0); NEUTROPHILS % 67.9 % (40.0-76.0); PLATELET 248 x1000/uL (130-400); RED BLOOD CELL COUNT 4.04 mill/uL (4.7-6.1); RED CELL DISTRIBUTION WIDTH 13.9 % (11.6-14.6)
[2021-05-05 17:54] LABS: CHLORIDE 102 mEq/L (98-107)
[2021-05-05 17:57] LABS: ETHANOL BLOOD < 10 mg/dL
== END 2021-05-05 18:16 | disposition left against medical advice (07) ==
LOC: ER 16:25
DX: K29.00 Acute gastritis without bleeding (principal); G40.909 Epilepsy, unspecified, not intractable, without status epilepticus; J45.909 Unspecified asthma, uncomplicated; Z88.6 Allergy status to analgesic agent; Z79.899 Other long term (current) drug therapy; Z53.29 Procedure and treatment not carried out because of patient's decision for other reasons
CPT/HCPCS: 36415; 70450; 80053; 80320; 83690; 85025; 99284; C9113; J1885; J2405; J3490; J7030; G0480

== ENCOUNTER 2021-07-14 06:43 | Emergency (ER) | payer MEDICAID ==
[~2021-07-14] VITALS: Ht 175.3 cm; Wt 84.0 kg
[2021-07-14] MEDS ORDERED: LORAZEPAM 2MG/ML CPJ IV ONE (07:15)
[2021-07-14] MEDS ORDERED: ONDANSETRON HCL 4MG/2ML INJ IV STA (07:15)
[2021-07-14] MEDS ORDERED: SODIUM CHLORIDE 0.9% 1,000 ML IV ONE (07:15)
[2021-07-14] MEDS ORDERED: MORPHINE SULFATE 4 MG/ML CPJ (NOT FOR IM USE) IV STA (07:15)
[2021-07-14 07:17] LABS: BASOPHILS % 0.8 % (0.0-2.0); EOSINOPHILS % 1.3 % (0.0-5.0); HEMATOCRIT. 45.1 % (42.0-52.0); LYMPHOCYTES % 22.2 % (20.0-50.0); MEAN CORPUSCULAR HEMOGLOBIN 31.1 pg (28.0-32.0); MEAN CORPUSCULAR VOLUME 93.6 fL (80.0-94.0); MEAN PLATELET VOLUME 7.5 fl (7.4-10.4); NEUTROPHILS % 67.7 % (40.0-76.0); PLATELET 278 x1000/uL (130-400); RED BLOOD CELL COUNT 4.82 mill/uL (4.7-6.1); RED CELL DISTRIBUTION WIDTH 14.2 % (11.6-14.6)
[2021-07-14 07:28] LABS: CHLORIDE 104 mEq/L (98-107)
[2021-07-14 07:39] LABS: ETHANOL BLOOD < 10 mg/dL
[2021-07-14] MEDS ORDERED: PHENYTOIN SODIUM 1,000 MG in SODIUM CHLORIDE 0.9% 100 ML IV ONE (08:15)
[2021-07-14 11:18] LABS: CLARITY URINE TURBID (CLEAR); COLOR URINE YELLOW (YELLOW); KETONES URINE TRACE (NEGATIVE); LEUKOCYTE ESTERASE URINE TRACE (NEGATIVE); NITRITE URINE NEGATIVE (NEGATIVE); OCCULT BLOOD URINE NEGATIVE (NEGATIVE); PH URINE 8.5 (4.5-8.0); PROTEIN URINE 1+ (NEGATIVE); SPECIFIC GRAVITY URINE 1.023 (1.005-1.030)
[2021-07-14 11:52] VITALS: BP 137/78
[2021-07-14] MEDS ORDERED: ONDA4TAB11 PO (11:56)
[2021-07-14] MEDS ORDERED: NITR-87 MT (11:56)
[2021-07-14] MEDS ORDERED: LORA-250 MT (11:56)
[2021-07-14] MEDS ORDERED: OMEP20CA14 MT (11:56)
[2021-07-14 11:59] LABS: *AMPHETAMINES SCREEN URINE NEGATIVE (NEGATIVE); *BARBITURATES SCREEN URINE NEGATIVE (NEGATIVE); *BENZODIAZEPINES SCREEN URINE NEGATIVE (NEGATIVE); *COCAINE SCREEN URINE NEGATIVE (NEGATIVE); CANNABINOID URINE SCREEN PRESUMTIVE POSITIVE (NEGATIVE); METHADONE URINE SCREEN NEGATIVE (NEGATIVE); OPIATES URINE SCREEN PRESUMTIVE POSITIVE (NEGATIVE); PHENCYCLIDINE URINE SCREEN NEGATIVE (NEGATIVE)
[2021-07-14] MEDS ORDERED: ONDANSETRON HCL 4MG/2ML INJ IV ONE (12:00)
== END 2021-07-14 12:03 | disposition home or self-care (01) ==
LOC: ER 06:43
DX: R10.13 Epigastric pain (principal); R11.2 Nausea with vomiting, unspecified; F41.9 Anxiety disorder, unspecified; K21.9 Gastro-esophageal reflux disease without esophagitis; J45.909 Unspecified asthma, uncomplicated; Z79.899 Other long term (current) drug therapy
CPT/HCPCS: 36415; 71045; 74176; 80053; 80185; 80305; 80320; 81003; 83690; 85025; 96361; 96374; 96375; 96376; 99291; J1165; J2060; J2270; J2405; J7030; J7050; G0480

== ENCOUNTER 2021-09-27 16:04 | Emergency (ER) | payer MEDICAID ==
[~2021-09-27] VITALS: Ht 175.3 cm; Wt 84.0 kg
[~2021-09-27 16:04] MED LIST changes: +LORA-250 MT; +NITR-87 MT
[2021-09-27 16:09] VITALS: BP 141/96
== END 2021-09-27 19:46 | disposition home or self-care (01) ==
LOC: ER 16:04
DX: T14.8XXA Other injury of unspecified body region, initial encounter (principal); M79.642 Pain in left hand; R07.89 Other chest pain; G40.909 Epilepsy, unspecified, not intractable, without status epilepticus; K21.9 Gastro-esophageal reflux disease without esophagitis; J45.909 Unspecified asthma, uncomplicated; F41.9 Anxiety disorder, unspecified; F12.10 Cannabis abuse, uncomplicated; F14.10 Cocaine abuse, uncomplicated; Z88.6 Allergy status to analgesic agent; Y04.0XXA Assault by unarmed brawl or fight, initial encounter; Y93.89 Activity, other specified; Y92.512 Supermarket, store or market as the place of occurrence of the external cause; Y99.8 Other external cause status
CPT/HCPCS: 71045; 73120; 93005; 99284

== ENCOUNTER 2022-03-15 09:03 | Inpatient (IN) | payer MEDICAID ==
[~2022-03-15] VITALS: Ht 170.2 cm; Wt 87.1 kg
[~2022-03-15 09:03] MED LIST changes: +ALBU6.7H3 INH; -ALBU6.7H9 INH; +ALPR2TAB2 PO; +CYCL10TA21 MT; +KEPP500 MT; +KEPP500 PO; +VALP250C3 MT
[2022-03-15] MEDS ORDERED: LORAZEPAM 2MG/ML CPJ IM STA (09:06)
[2022-03-15] MEDS ORDERED: LEVETIRACETAM 1000MG PREMIX 100 ML IV ONE (09:15)
[2022-03-15 10:06] LABS: BASOPHILS % 0.8 % (0.0-2.0); EOSINOPHILS % 2.7 % (0.0-5.0); HEMATOCRIT. 50.4 % (42.0-52.0); LYMPHOCYTES % 55.2 % (20.0-50.0); MEAN CORPUSCULAR HEMOGLOBIN 33.5 pg (28.0-32.0); MEAN CORPUSCULAR VOLUME 105.8 fL (80.0-94.0); MEAN PLATELET VOLUME 9.2 fl (7.4-10.4); MONOCYTES % 10.8 % (2.0-8.0); NEUTROPHILS % 30.5 % (40.0-76.0); PLATELET 192 x1000/uL (130-400); RED BLOOD CELL COUNT 4.77 mill/uL (4.7-6.1); RED CELL DISTRIBUTION WIDTH 15.6 % (11.6-14.6)
[2022-03-15 10:24] LABS: CHLORIDE 106 mEq/L (98-107)
[2022-03-15 10:31] LABS: ETHANOL BLOOD < 10 mg/dL
[2022-03-15] MEDS ORDERED: PIPERACILLIN/TAZ 3.375G PREMIX 50 ML IV NR ×2 (12:15→23:45)
[2022-03-15] MEDS ORDERED: ONDANSETRON HCL 4MG/2ML INJ IV PRN (12:15)
[2022-03-15] MEDS: LEVETIRACETAM 500MG PREMIX 100 ML IV SCH ×3 (12:45→22:45)
[2022-03-15] MEDS ORDERED: ENOXAPARIN 40MG/0.4ML SYR SUBCUT SCH (13:00)
[2022-03-15 13:53] LABS: CLARITY URINE CLEAR (CLEAR); COLOR URINE PALE YELLOW (YELLOW)
[2022-03-15 13:54] LABS: KETONES URINE NEGATIVE (NEGATIVE); LEUKOCYTE ESTERASE URINE NEGATIVE (NEGATIVE); NITRITE URINE NEGATIVE (NEGATIVE); OCCULT BLOOD URINE 3+ (NEGATIVE); PROTEIN URINE 1+ (NEGATIVE); UROBILINOGEN URINE 0.2 E.U./dL (0.2-1.0)
[2022-03-15 14:38] LABS: *AMPHETAMINES SCREEN URINE NEGATIVE (NEGATIVE); *BARBITURATES SCREEN URINE NEGATIVE (NEGATIVE); *BENZODIAZEPINES SCREEN URINE NEGATIVE (NEGATIVE); *COCAINE SCREEN URINE NEGATIVE (NEGATIVE); CANNABINOID URINE SCREEN PRESUMTIVE POSITIVE (NEGATIVE); METHADONE URINE SCREEN NEGATIVE (NEGATIVE); OPIATES URINE SCREEN NEGATIVE (NEGATIVE); PHENCYCLIDINE URINE SCREEN NEGATIVE (NEGATIVE)
[2022-03-15] MEDS: DEXT 5%/0.45% NACL 1000ML 1,000 ML IV SCH (17:00)
[2022-03-15] MEDS ORDERED: PIPERACILLIN/TAZOBACTAM 3.375G in DEXT 5% WATER 50ML IV SCH (22:00)
[2022-03-15] MEDS ORDERED: NALOXONE HCL 0.4MG/ML VIAL IV PRN (23:00)
[2022-03-15] MEDS: PHENYTOIN SODIUM EXTENDED 100MG CAPSULE PO SCH (23:15)
[2022-03-15] MEDS: MORPHINE SULFATE 2 MG/ML CPJ (NOT FOR IM USE) IV PRN ×2 (23:39→23:49)
[2022-03-16 01:00] VITALS: BP 106/76
[2022-03-16 02:00] VITALS: BP 106/76
[2022-03-16] MEDS: DEXT 5%/0.45% NACL 1000ML 1,000 ML IV SCH ×2 (03:04→09:14)
[2022-03-16 04:00] VITALS: BP 109/79
[2022-03-16 06:00] VITALS: BP 111/72
[2022-03-16] MEDS ORDERED: PIPERACILLIN/TAZOBACTAM 3.375G in DEXT 5% WATER 50ML IV SCH (06:00)
[2022-03-16] MEDS ORDERED: VALPROIC ACID 250MG CAPSULE PO SCH (06:00)
[2022-03-16] MEDS: PHENYTOIN SODIUM EXTENDED 100MG CAPSULE PO SCH (09:13)
[2022-03-16] MEDS ORDERED: LEVETIRACETAM 500MG PREMIX 100 ML IV SCH (11:00)
[2022-03-16] MEDS ORDERED: PHENYTOIN SODIUM 1,000 MG in SODIUM CHLORIDE 0.9% 100 ML IV NR (11:30)
[2022-03-16 12:00] VITALS: BP 105/72
[2022-03-16 12:08] VITALS: BP 108/57
== END 2022-03-16 15:46 | disposition home or self-care (01) | DRG 53 ==
LOC: ER 09:03 → 5EST 11:22 → EDBEDREQ 11:25 → EDBEDREQTM 11:25 → EDBEDREQSVC 15:09 → ENRESERV 23:25
PROVIDERS: ADMIT Internal Medicine; ATTEND Internal Medicine
PROC: 4A00X4Z Measurement of Central Nervous Electrical Activity, External Approach (ICD-10-PCS; principal; 2022-03-16)
DX: G40.901 Epilepsy, unspecified, not intractable, with status epilepticus (principal); J45.909 Unspecified asthma, uncomplicated; K21.9 Gastro-esophageal reflux disease without esophagitis; Z78.1 Physical restraint status; Z82.49 Family history of ischemic heart disease and other diseases of the circulatory system; Z88.3 Allergy status to other anti-infective agents; Z88.6 Allergy status to analgesic agent; Z91.018 Allergy to other foods
CPT/HCPCS: 36415; 71045; 80053; 80156; 80165; 80184; 80185; 80305; 80320; 81003; 82962; 85025; 95816; 99285; J1165; J1953; J2060; J2270; J2405; J2543; J7050; J7060; G0480

== ENCOUNTER 2022-07-08 17:41 | Emergency (ER) | payer MEDICAID, OTHER ==
[~2022-07-08] VITALS: Ht 182.9 cm; Wt 105.0 kg
[~2022-07-08 17:41] MED LIST changes: +FAMO40TA70 MT; +LORA2TAB95 PO; +PHEN300C6 PO; +VALP250S4 PO
[2022-07-08] MEDS ORDERED: SODIUM CHLORIDE 0.9% 1,000 ML IV ONE ×2 (18:30)
[2022-07-08] MEDS ORDERED: HALOPERIDOL LACTATE 5MG/ML VIAL IM ONE ×2 (18:30→19:15)
[2022-07-08] MEDS ORDERED: LEVETIRACETAM 500MG PREMIX 100 ML IV ONE (18:30)
[2022-07-08] MEDS ORDERED: LORAZEPAM 2MG/ML CPJ IM ONE ×4 (18:30→22:00)
[2022-07-08] MEDS ORDERED: ONDANSETRON HCL 4MG/2ML INJ IM ONE (18:30)
[2022-07-08] MEDS ORDERED: DIPHENHYDRAMINE 50MG/ML VIAL IM ONE ×4 (18:30→22:00)
[2022-07-08] MEDS ORDERED: LORAZEPAM 2MG/ML CPJ IV ONE (18:30)
[2022-07-08 19:37] LABS: *AMPHETAMINES SCREEN URINE NEGATIVE (NEGATIVE); *BARBITURATES SCREEN URINE NEGATIVE (NEGATIVE); *BENZODIAZEPINES SCREEN URINE NEGATIVE (NEGATIVE); *COCAINE SCREEN URINE NEGATIVE (NEGATIVE); CANNABINOID URINE SCREEN PRESUMTIVE POSITIVE (NEGATIVE); METHADONE URINE SCREEN NEGATIVE (NEGATIVE); OPIATES URINE SCREEN NEGATIVE (NEGATIVE); PHENCYCLIDINE URINE SCREEN NEGATIVE (NEGATIVE)
[2022-07-08] MEDS ORDERED: OLANZAPINE 10 MG/VIAL IM ONE (20:45)
[2022-07-08 23:17] LABS: CHLORIDE 110 mEq/L (98-107)
[2022-07-08 23:25] LABS: ETHANOL BLOOD < 10 mg/dL
[2022-07-08 23:28] LABS: BASOPHILS % 0.3 % (0.0-2.0); EOSINOPHILS % 0.1 % (0.0-5.0); HEMATOCRIT. 44.8 % (42.0-52.0); HEMOGLOBIN. 14.8 g/dL (14.0-18.0); LYMPHOCYTES % 12.1 % (20.0-50.0); MEAN CORPUSCULAR HEMOGLOBIN 32.9 pg (28.0-32.0); MEAN CORPUSCULAR VOLUME 99.4 fL (80.0-94.0); MEAN PLATELET VOLUME 9.5 fl (7.4-10.4); MONOCYTES % 8.4 % (2.0-8.0); NEUTROPHILS % 79.1 % (40.0-76.0); PLATELET 239 x1000/uL (130-400); RED BLOOD CELL COUNT 4.51 mill/uL (4.7-6.1); RED CELL DISTRIBUTION WIDTH 13.7 % (11.6-14.6)
[2022-07-08 23:35] LABS: CARBAMAZEPINE < 0.5 ug/mL (4-12)
[2022-07-09] MEDS ORDERED: LORAZEPAM 2MG/ML CPJ IM NR (01:15)
[2022-07-09 02:58] VITALS: BP 153/88
== END 2022-07-09 03:30 | disposition short-term general hospital (02) ==
LOC: ER 17:41 → MERGE 17:41 → ER 07-09 03:30
DX: R56.9 Unspecified convulsions (principal); F12.10 Cannabis abuse, uncomplicated; F15.10 Other stimulant abuse, uncomplicated; Z20.822 Contact with and (suspected) exposure to COVID-19
CPT/HCPCS: 36415; 71045; 80053; 80156; 80165; 80185; 80305; 80307; 80320; 80329; 82140; 82962; 84484; 85025; 87426; 96365; 96366; 96372; 99285; C9803; J1200; J1630; J1953; J2060; J2405; J3490; J7030; Z7610; G0480

== ENCOUNTER 2022-08-12 06:38 | Emergency (ER) | payer OTHER ==
[~2022-08-12] VITALS: Ht 175.3 cm; Wt 85.4 kg
[2022-08-12] MEDS ORDERED: ONDANSETRON HCL 4MG/2ML INJ IV STA (08:35)
[2022-08-12] MEDS ORDERED: MORPHINE SULFATE 4 MG/ML CPJ (NOT FOR IM USE) IV ONE ×2 (08:45→10:30)
[2022-08-12] MEDS ORDERED: SODIUM CHLORIDE 0.9% 1,000 ML IV ONE (08:45)
[2022-08-12] MEDS ORDERED: TRAMADOL 50MG TABLET PO ONE (08:45)
[2022-08-12 09:42] LABS: BASOPHILS % 0.8 % (0.0-2.0); EOSINOPHILS % 0.3 % (0.0-5.0); HEMATOCRIT. 45.6 % (42.0-52.0); HEMOGLOBIN. 15.3 g/dL (14.0-18.0); MEAN CORPUSCULAR HEMOGLOBIN 31.9 pg (28.0-32.0); MEAN CORPUSCULAR VOLUME 95.3 fL (80.0-94.0); MEAN PLATELET VOLUME 8.4 fl (7.4-10.4); MONOCYTES % 8.8 % (2.0-8.0); NEUTROPHILS % 69.1 % (40.0-76.0); PLATELET 278 x1000/uL (130-400); RED BLOOD CELL COUNT 4.78 mill/uL (4.7-6.1); RED CELL DISTRIBUTION WIDTH 14.5 % (11.6-14.6)
[2022-08-12 09:54] LABS: CHLORIDE 105 mEq/L (98-107)
[2022-08-12] MEDS ORDERED: LEVETIRACETAM 1000MG PREMIX 100 ML IV ONE (10:30)
[2022-08-12 11:15] LABS: CLARITY URINE CLEAR (CLEAR); COLOR URINE DARK YELLOW (YELLOW); KETONES URINE TRACE (NEGATIVE); LEUKOCYTE ESTERASE URINE 1+ (NEGATIVE); NITRITE URINE NEGATIVE (NEGATIVE); OCCULT BLOOD URINE NEGATIVE (NEGATIVE); PH URINE >=9.0 (4.5-8.0); PROTEIN URINE 2+ (NEGATIVE); SPECIFIC GRAVITY URINE 1.032 (1.005-1.030)
[2022-08-12] MEDS ORDERED: VISCOUS LIDOCAINE 2% 15 ML UDC PO STA (11:18)
[2022-08-12] MEDS ORDERED: MAGNESIUM/ALUMINUM HYDROXIDE/SIMETHICONE 30ML UDC PO STA (11:18)
[2022-08-12] MEDS ORDERED: DICYCLOMINE 10 MG/5 ML ORAL SYR PO STA (11:18)
[2022-08-12] MEDS ORDERED: FAMOTIDINE 20MG/2ML VIAL IV STA (11:18)
[2022-08-12] MEDS ORDERED: DICYCLOMINE HCL 10MG CAPSULE PO SCH (11:45)
[2022-08-12 13:04] VITALS: BP 119/71
== END 2022-08-12 13:48 | disposition short-term general hospital (02) ==
LOC: ER 06:38
DX: K85.90 Acute pancreatitis without necrosis or infection, unspecified (principal); F14.10 Cocaine abuse, uncomplicated; F12.10 Cannabis abuse, uncomplicated; Z79.899 Other long term (current) drug therapy
CPT/HCPCS: 36415; 80053; 80185; 81003; 83690; 85025; 85610; 96361; 96365; 96375; 96376; 99284; J1953; J2270; J2405; J3490; J7030; Z7610

== ENCOUNTER 2022-08-20 10:43 | Inpatient (IN) | payer OTHER ==
[~2022-08-20] VITALS: Ht 175.3 cm; Wt 86.2 kg
[2022-08-20 10:48] VITALS: O2SAT 100
[2022-08-20] MEDS ORDERED: ONDANSETRON HCL 4MG/2ML INJ IV ONE (11:00)
[2022-08-20] MEDS ORDERED: LEVETIRACETAM 1000MG PREMIX 100 ML IV ONE (11:00)
[2022-08-20] MEDS ORDERED: LORAZEPAM 2MG/ML CPJ IV ONE (11:00)
[2022-08-20 12:10] LABS: BASOPHILS % 1.3 % (0.0-2.0); EOSINOPHILS % 4.9 % (0.0-5.0); HEMOGLOBIN. 15.7 g/dL (14.0-18.0); LYMPHOCYTES % 40.2 % (20.0-50.0); MEAN CORPUSCULAR HEMOGLOBIN 31.5 pg (28.0-32.0); MEAN CORPUSCULAR VOLUME 110.1 fL (80.0-94.0); MEAN PLATELET VOLUME 9.4 fl (7.4-10.4); MONOCYTES % 8.2 % (2.0-8.0); NEUTROPHILS % 45.4 % (40.0-76.0); PLATELET 289 x1000/uL (130-400); RED CELL DISTRIBUTION WIDTH 15.6 % (11.6-14.6)
[2022-08-20 12:19] LABS: CHLORIDE 105 mEq/L (98-107)
[2022-08-20 12:27] LABS: ETHANOL BLOOD < 10 mg/dL (-10)
[2022-08-20 12:30] LABS: CARBAMAZEPINE < 0.5 ug/mL (4-12)
[2022-08-20 12:31] LABS: PLATELET ESTIMATE NORMAL
[2022-08-20] MEDS ORDERED: SODIUM CHLORIDE 0.9% 1,000 ML IV ONE ×2 (13:00)
[2022-08-20] MEDS ORDERED: SODIUM BICARBONATE 8.4% 1 MEQ/ML 50ML SYR IV ONE (13:15)
[2022-08-20] MEDS ORDERED: LORAZEPAM 2MG/ML CPJ IV PRN ×3 (13:15→21:30)
[2022-08-20] MEDS ORDERED: SODIUM BICARBONATE 8.4% 1 MEQ/ML 50ML SYR IV SCH (13:30)
[2022-08-20 19:16] VITALS: BP 121/60; PULSE 98; RESP 29
[2022-08-20 20:00] VITALS: BP 121/60; PULSE 90; PULSE 98; RESP 20; RESP 26; TEMP 99.7
[2022-08-20] MEDS ORDERED: LEVETIRACETAM 1000MG PREMIX 100 ML IV SCH (21:00)
[2022-08-20 21:11] LABS: CHLORIDE 109 mEq/L (98-107)
[2022-08-20] MEDS ORDERED: LEVETIRACETAM 1,000 MG in SODIUM CHLORIDE 0.9% 100 ML IV SCH (22:00)
[2022-08-20] MEDS: LEVETIRACETAM 500MG TABLET PO SCH (22:06)
[2022-08-21] VITALS: PULSE 85; RESP 25
[2022-08-21 01:06] VITALS: BP 138/79; PULSE 78; RESP 23; TEMP 99.8
[2022-08-21 01:55] LABS: CLARITY URINE CLEAR (CLEAR); COLOR URINE YELLOW (YELLOW); KETONES URINE NEGATIVE (NEGATIVE); LEUKOCYTE ESTERASE URINE NEGATIVE (NEGATIVE); NITRITE URINE NEGATIVE (NEGATIVE); OCCULT BLOOD URINE TRACE (NEGATIVE); PH URINE 5.5 (4.5-8.0); PROTEIN URINE NEGATIVE (NEGATIVE); SPECIFIC GRAVITY URINE 1.013 (1.005-1.030); UROBILINOGEN URINE 0.2 E.U./dL (0.2-1.0)
[2022-08-21 02:23] LABS: *AMPHETAMINES SCREEN URINE NEGATIVE (NEGATIVE); *BARBITURATES SCREEN URINE NEGATIVE (NEGATIVE); *BENZODIAZEPINES SCREEN URINE PRESUMTIVE POSITIVE (NEGATIVE); *COCAINE SCREEN URINE NEGATIVE (NEGATIVE); CANNABINOID URINE SCREEN PRESUMTIVE POSITIVE (NEGATIVE); METHADONE URINE SCREEN NEGATIVE (NEGATIVE); OPIATES URINE SCREEN NEGATIVE (NEGATIVE); PHENCYCLIDINE URINE SCREEN NEGATIVE (NEGATIVE)
[2022-08-21 04:04] VITALS: PULSE 74; RESP 24
[2022-08-21 05:06] VITALS: BP 132/75; PULSE 78; RESP 27; TEMP 98.6
[2022-08-21 08:00] VITALS: BP 97/65; PULSE 78; RESP 27; TEMP 98.6
[2022-08-21] MEDS: LEVETIRACETAM 500MG TABLET PO SCH (08:55)
[2022-08-21] MEDS ORDERED: NALOXONE HCL 0.4MG/ML VIAL IV PRN (13:00)
== END 2022-08-21 11:00 | disposition left against medical advice (07) | DRG 53 ==
LOC: ER 10:43 → 3WST 12:38 → EDBEDREQTM 12:49 → EDBEDREQ 12:49
PROVIDERS: ADMIT Internal Medicine; ATTEND Internal Medicine
DX: G40.909 Epilepsy, unspecified, not intractable, without status epilepticus (principal); G93.41 Metabolic encephalopathy; E87.1 Hypo-osmolality and hyponatremia; E87.20 Acidosis, unspecified; F17.210 Nicotine dependence, cigarettes, uncomplicated; Z88.6 Allergy status to analgesic agent; Z53.29 Procedure and treatment not carried out because of patient's decision for other reasons; Z82.49 Family history of ischemic heart disease and other diseases of the circulatory system
CPT/HCPCS: 36415; 71045; 80048; 80053; 80156; 80165; 80185; 80305; 80320; 81003; 84484; 85025; 99285; C1893; J1953; J2060; J2405; J3490; J7030; J7050; G0480

== ENCOUNTER 2022-09-05 10:13 | Emergency (ER) | payer OTHER ==
[~2022-09-05] VITALS: Ht 175.3 cm; Wt 87.0 kg
[2022-09-05 10:18] VITALS: O2SAT 100
[2022-09-05] MEDS ORDERED: MORPHINE SULFATE 4 MG/ML CPJ (NOT FOR IM USE) IV STA (10:29)
[2022-09-05] MEDS ORDERED: ONDANSETRON HCL 4MG/2ML INJ IV STA (10:29)
[2022-09-05] MEDS ORDERED: FAMOTIDINE 20MG/2ML VIAL IV STA (10:29)
[2022-09-05] MEDS ORDERED: LEVETIRACETAM 1000MG PREMIX 100 ML IV ONE (10:30)
[2022-09-05] MEDS ORDERED: SODIUM CHLORIDE 0.9% 1,000 ML IV ONE (10:30)
[2022-09-05 11:13] LABS: BASOPHILS % 0.5 % (0.0-2.0); EOSINOPHILS % 0.1 % (0.0-5.0); HEMATOCRIT. 42.6 % (42.0-52.0); HEMOGLOBIN. 14.6 g/dL (14.0-18.0); MEAN CORPUSCULAR HEMOGLOBIN 32.4 pg (28.0-32.0); MEAN CORPUSCULAR VOLUME 94.2 fL (80.0-94.0); MEAN PLATELET VOLUME 7.4 fl (7.4-10.4); MONOCYTES % 5.2 % (2.0-8.0); NEUTROPHILS % 77.2 % (40.0-76.0); PLATELET 272 x1000/uL (130-400); RED BLOOD CELL COUNT 4.52 mill/uL (4.7-6.1); RED CELL DISTRIBUTION WIDTH 14.6 % (11.6-14.6)
[2022-09-05 11:22] LABS: CHLORIDE 108 mEq/L (98-107)
[2022-09-05 11:23] LABS: PROTHROMBIN TIME 10.9 sec (9.6-11.0)
[2022-09-05] MEDS ORDERED: FAMOTIDINE 20MG/2ML VIAL IV NR (13:15)
[2022-09-05] MEDS ORDERED: LEVETIRACETAM 1000MG PREMIX 100 ML IV NR (13:30)
[2022-09-05] MEDS ORDERED: MORPHINE SULFATE 4 MG/ML CPJ (NOT FOR IM USE) IV NR (13:30)
[2022-09-05] MEDS ORDERED: ONDANSETRON HCL 4MG/2ML INJ IV NR (13:30)
[2022-09-05 14:55] VITALS: BP 125/70; PULSE 70; RESP 16; TEMP 98.2
== END 2022-09-05 15:10 | disposition short-term general hospital (02) ==
LOC: ER 10:13
DX: R10.9 Unspecified abdominal pain (principal); R56.9 Unspecified convulsions; F14.10 Cocaine abuse, uncomplicated; F12.10 Cannabis abuse, uncomplicated; Z88.6 Allergy status to analgesic agent; Z91.018 Allergy to other foods; Z88.5 Allergy status to narcotic agent; Z79.899 Other long term (current) drug therapy
CPT/HCPCS: 99285; 96365; 96375; 80053; 80185; 83690; 85025; 85610; 36415; J1953; J3490; J2405; J2270; J7030

== ENCOUNTER 2022-09-28 15:16 | Emergency (ER) | payer OTHER ==
[~2022-09-28] VITALS: Ht 175.3 cm; Wt 86.0 kg
[2022-09-28 15:22] VITALS: BP 128/75; PULSE 104; RESP 16; TEMP 97.8; O2SAT 98
[2022-09-28] MEDS ORDERED: KETOROLAC 60MG/2ML VIAL IM ONE (15:30)
[2022-09-28] MEDS ORDERED: TOPUD PO (16:15)
== END 2022-09-28 19:07 | disposition home or self-care (01) ==
LOC: ER 15:16
DX: M54.50 Low back pain, unspecified (principal); F14.10 Cocaine abuse, uncomplicated; F12.10 Cannabis abuse, uncomplicated; Z79.899 Other long term (current) drug therapy
CPT/HCPCS: 99285; 70450; 72100; 73600; 96372; J1885

== ENCOUNTER 2022-10-03 02:06 | Emergency (ER) | payer OTHER ==
[~2022-10-03] VITALS: Ht 188 cm; Wt 94.0 kg
[~2022-10-03 02:06] MED LIST changes: +TOPUD PO
[2022-10-03 02:08] VITALS: O2SAT 100
[2022-10-03] MEDS ORDERED: ONDANSETRON HCL 4MG/2ML INJ IV STA (02:43)
[2022-10-03] MEDS ORDERED: MAGNESIUM/ALUMINUM HYDROXIDE/SIMETHICONE 30ML UDC PO STA (02:43)
[2022-10-03] MEDS ORDERED: SODIUM CHLORIDE 0.9% 1,000 ML IV ONE (02:45)
[2022-10-03] MEDS ORDERED: LORAZEPAM 2MG/ML CPJ IV ONE (02:45)
[2022-10-03] MEDS ORDERED: LEVETIRACETAM 1000MG PREMIX 100 ML IV ONE (02:45)
[2022-10-03 04:32] LABS: BASOPHILS % 1.2 % (0.0-2.0); EOSINOPHILS % 0.7 % (0.0-5.0); HEMATOCRIT. 44.3 % (42.0-52.0); HEMOGLOBIN. 14.7 g/dL (14.0-18.0); LYMPHOCYTES % 28.4 % (20.0-50.0); MEAN CORPUSCULAR HEMOGLOBIN 31.7 pg (28.0-32.0); MEAN PLATELET VOLUME 8.4 fl (7.4-10.4); MONOCYTES % 6.3 % (2.0-8.0); NEUTROPHILS % 63.4 % (40.0-76.0); PLATELET 247 x1000/uL (130-400); RED BLOOD CELL COUNT 4.62 mill/uL (4.7-6.1); RED CELL DISTRIBUTION WIDTH 15.9 % (11.6-14.6); WHITE BLOOD COUNT 5.7 x1000/uL (4.5-11.0)
[2022-10-03 04:45] LABS: CHLORIDE 110 mEq/L (98-107); INDEX HEMOLYSI 4 (1-3); INDEX ICTERIC 1 (1-4); INDEX LIPEMIC 1 (1-3); SODIUM 141 mEq/L (136-145)
[2022-10-03 04:51] LABS: ALANINE AMINOTRANSFERASE 20 IU/L (13-61); ALBUMIN 4.4 g/dL (3.4-5.0); ASPARTATE AMINOTRANSFERASE 26 IU/L (15-37); BILIRUBIN TOTAL 0.7 mg/dL (0.1-1.0); CALCIUM 8.9 mg/dL (8.5-10.1); CARBON DIOXIDE 25 mEq/L (21-32); GLUCOSE 103 mg/dL (70-105); PROTEIN TOTAL 8.4 g/dL (6.0-8.3); UREA NITROGEN BLOOD 12 mg/dL (7-21)
[2022-10-03 05:01] LABS: POTASSIUM 4.2 mEq/L (3.5-5.1)
[2022-10-03] MEDS ORDERED: ACETAMINOPHEN 325MG TABLET PO ONE (06:45)
[2022-10-03 10:34] VITALS: BP 128/83; PULSE 88; RESP 15; TEMP 98.1
== END 2022-10-03 11:04 | disposition short-term general hospital (02) ==
LOC: ER 02:06
DX: R56.9 Unspecified convulsions (principal); F12.10 Cannabis abuse, uncomplicated; F14.10 Cocaine abuse, uncomplicated; Z88.6 Allergy status to analgesic agent; Z88.5 Allergy status to narcotic agent; Z91.018 Allergy to other foods; Z79.899 Other long term (current) drug therapy
CPT/HCPCS: 80053; 85025; 36415; 70450; 96365; 96375; 99285; J1953; J2060; J2405; J7030; Z7610 ×5

== ENCOUNTER 2022-10-26 07:16 | Emergency (ER) | payer OTHER ==
[~2022-10-26] VITALS: Ht 177.8 cm; Wt 82.0 kg
[2022-10-26 07:19] VITALS: O2SAT 100
[2022-10-26] MEDS ORDERED: ONDANSETRON HCL 4MG/2ML INJ IV STA ×2 (07:23→12:13)
[2022-10-26] MEDS ORDERED: SODIUM CHLORIDE 0.9% 1,000 ML IV ONE (07:30)
[2022-10-26] MEDS ORDERED: LEVETIRACETAM 500MG PREMIX 100 ML IV ONE (07:30)
[2022-10-26 08:48] LABS: HEMOGLOBIN. 15.2 g/dL (14.0-18.0)
[2022-10-26 08:50] LABS: BASOPHILS % 0.4 % (0.0-2.0); EOSINOPHILS % 0.5 % (0.0-5.0); HEMATOCRIT. 44.5 % (42.0-52.0); LYMPHOCYTES % 24.6 % (20.0-50.0); MEAN CORPUSCULAR HEMOGLOBIN 32.8 pg (28.0-32.0); MEAN CORPUSCULAR HGB CONC 34.1 g/dL (31.0-37.0); MEAN PLATELET VOLUME 8.2 fl (7.4-10.4); MONOCYTES % 6.2 % (2.0-8.0); NEUTROPHILS % 68.3 % (40.0-76.0); PLATELET 304 x1000/uL (130-400); RED BLOOD CELL COUNT 4.64 mill/uL (4.7-6.1); RED CELL DISTRIBUTION WIDTH 15.9 % (11.6-14.6); WHITE BLOOD COUNT 4.5 x1000/uL (4.5-11.0)
[2022-10-26] MEDS ORDERED: LORAZEPAM 0.5MG TABLET PO ONE (11:15)
[2022-10-26] MEDS ORDERED: MAGNESIUM/ALUMINUM HYDROXIDE/SIMETHICONE 30ML UDC PO ONE (11:15)
[2022-10-26 11:18] LABS: CHLORIDE 107 mEq/L (98-107); INDEX HEMOLYSI 2 (1-3); INDEX ICTERIC 1 (1-4); INDEX LIPEMIC 1 (1-3); POTASSIUM 3.7 mEq/L (3.5-5.1); SODIUM 136 mEq/L (136-145)
[2022-10-26 11:25] LABS: ALANINE AMINOTRANSFERASE 18 IU/L (13-61); ALBUMIN 3.8 g/dL (3.4-5.0); ASPARTATE AMINOTRANSFERASE 16 IU/L (15-37); BILIRUBIN TOTAL 1.4 mg/dL (0.1-1.0); CALCIUM 8.7 mg/dL (8.5-10.1); CARBON DIOXIDE 23 mEq/L (21-32); CREATINE KINASE 136 IU/L (39-308); CREATININE 0.8 mg/dL (0.6-1.3); ETHANOL BLOOD < 10 mg/dL (-10); GLUCOSE 109 mg/dL (70-105); PROTEIN TOTAL 7.6 g/dL (6.0-8.3); UREA NITROGEN BLOOD 13 mg/dL (7-21)
[2022-10-26 11:29] VITALS: TEMP 97.9
[2022-10-26] MEDS ORDERED: MORPHINE SULFATE 4 MG/ML CPJ (NOT FOR IM USE) IV STA (12:13)
[2022-10-26] MEDS ORDERED: KEPP500 MT (12:19)
[2022-10-26 13:32] VITALS: BP 131/87; PULSE 62; RESP 22
[2022-10-27] MEDS ORDERED: ALBU6.7H3 INH (19:29)
[2022-10-27] MEDS ORDERED: P50 MT (19:29)
[2022-10-27] MEDS ORDERED: FAMO-135 PO (19:29)
== END 2022-10-26 13:34 | disposition home or self-care (01) ==
LOC: ER 07:16
DX: R56.9 Unspecified convulsions (principal); F12.10 Cannabis abuse, uncomplicated; F14.10 Cocaine abuse, uncomplicated; Z88.6 Allergy status to analgesic agent; Z91.018 Allergy to other foods; Z88.5 Allergy status to narcotic agent; Z79.899 Other long term (current) drug therapy
CPT/HCPCS: 80053; 80320; 82550; 83690; 85025; 36415; 74176; 96365; 96366; 96375; 96376; 99291; J1953; J2405; J2270; J7030; Z7610 ×5; G0480

== ENCOUNTER 2022-10-27 15:51 | Emergency (ER) | payer OTHER ==
[~2022-10-27] VITALS: Ht 175.3 cm; Wt 90.0 kg
[2022-10-27] MEDS ORDERED: FAMOTIDINE 20MG/2ML VIAL IV STA (16:00)
[2022-10-27] MEDS ORDERED: SODIUM CHLORIDE 0.9% 1,000 ML IV ONE ×2 (16:00→18:30)
[2022-10-27] MEDS ORDERED: METHYLPREDNISOLONE SOD SUCC 125MG/2ML (ACT-O-VIAL) IV STA (16:00)
[2022-10-27] MEDS ORDERED: MAGNESIUM/ALUMINUM HYDROXIDE/SIMETHICONE 30ML UDC PO STA (16:00)
[2022-10-27] MEDS ORDERED: IPRATROPIUM BROMIDE (0.02%) 0.5MG/2.5ML NEB HHN STA (16:00)
[2022-10-27] MEDS ORDERED: ALBUTEROL (0.083%) 2.5MG/3ML NEB HHN STA (16:00)
[2022-10-27 16:40] VITALS: PULSE 68; RESP 24; O2SAT 99
[2022-10-27] MEDS ORDERED: METHYLPREDNISOLONE SOD SUCC 125MG VIAL IV NR (17:00)
[2022-10-27 17:22] LABS: BASOPHILS % 0.9 % (0.0-2.0); EOSINOPHILS % 0.5 % (0.0-5.0); HEMATOCRIT. 47.1 % (42.0-52.0); HEMOGLOBIN. 15.9 g/dL (14.0-18.0); LYMPHOCYTES % 29.1 % (20.0-50.0); MEAN CORPUSCULAR HEMOGLOBIN 32.6 pg (28.0-32.0); MEAN CORPUSCULAR HGB CONC 33.7 g/dL (31.0-37.0); MEAN CORPUSCULAR VOLUME 96.7 fL (80.0-94.0); MEAN PLATELET VOLUME 7.5 fl (7.4-10.4); MONOCYTES % 6.6 % (2.0-8.0); NEUTROPHILS % 62.9 % (40.0-76.0); PLATELET 278 x1000/uL (130-400); RED BLOOD CELL COUNT 4.87 mill/uL (4.7-6.1); RED CELL DISTRIBUTION WIDTH 15.1 % (11.6-14.6); WHITE BLOOD COUNT 5.2 x1000/uL (4.5-11.0)
[2022-10-27 17:30] LABS: CHLORIDE 102 mEq/L (98-107); INDEX HEMOLYSI 1 (1-3); INDEX ICTERIC 1 (1-4); INDEX LIPEMIC 1 (1-3); POTASSIUM 3.8 mEq/L (3.5-5.1); SODIUM 134 mEq/L (136-145)
[2022-10-27 17:38] LABS: ALANINE AMINOTRANSFERASE 19 IU/L (13-61); ALBUMIN 4.3 g/dL (3.4-5.0); ASPARTATE AMINOTRANSFERASE 15 IU/L (15-37); BILIRUBIN TOTAL 1.4 mg/dL (0.1-1.0); CALCIUM 9.6 mg/dL (8.5-10.1); CARBON DIOXIDE 28 mEq/L (21-32); CREATININE 1.2 mg/dL (0.6-1.3); GLUCOSE 106 mg/dL (70-105); NT PRO B-TYPE NATRIURETIC PEP 14 pg/mL (5-125); PROTEIN TOTAL 8.3 g/dL (6.0-8.3); TROPONIN I HIGH SENSITIVITY 6 ng/L (<78); UREA NITROGEN BLOOD 11 mg/dL (7-21)
[2022-10-27] MEDS ORDERED: ONDANSETRON HCL 4MG/2ML INJ IV STA (18:22)
[2022-10-27] MEDS ORDERED: MORPHINE SULFATE 4 MG/ML CPJ (NOT FOR IM USE) IV STA (18:22)
[2022-10-27 18:41] VITALS: TEMP 98.1
[2022-10-27] MEDS ORDERED: ALBU6.7H3 INH (19:29)
[2022-10-27] MEDS ORDERED: P50 MT (19:29)
[2022-10-27] MEDS ORDERED: FAMO-135 PO (19:29)
[2022-10-27 20:18] VITALS: BP 128/69; PULSE 81; RESP 21
== END 2022-10-27 20:26 | disposition home or self-care (01) ==
LOC: ER 15:51
DX: R10.13 Epigastric pain (principal); J45.901 Unspecified asthma with (acute) exacerbation; F12.90 Cannabis use, unspecified, uncomplicated; R56.9 Unspecified convulsions; Z88.6 Allergy status to analgesic agent; Z88.5 Allergy status to narcotic agent; Z88.8 Allergy status to other drugs, medicaments and biological substances; Z79.899 Other long term (current) drug therapy
CPT/HCPCS: 80053; 83880; 83690; 85025; 84484; 36415; 71045; 74176; 93005; 94644; 96361; 96374; 96375; 96376; 99285; J3490; J2930; J2405; J2270; Z7610 ×3; J7030

== ENCOUNTER 2022-11-05 07:20 | Emergency (ER) | payer OTHER ==
[~2022-11-05] VITALS: Ht 175.3 cm; Wt 63.0 kg
[~2022-11-05 07:20] MED LIST changes: +FAMO-135 PO
[2022-11-05] MEDS ORDERED: MORPHINE SULFATE 4 MG/ML CPJ (NOT FOR IM USE) IV STA (07:28)
[2022-11-05] MEDS ORDERED: ONDANSETRON HCL 4MG/2ML INJ IV STA (07:28)
[2022-11-05] MEDS ORDERED: SODIUM CHLORIDE 0.9% 1,000 ML IV ONE (07:30)
[2022-11-05 10:00] LABS: BASOPHILS % 0.8 % (0.0-2.0); EOSINOPHILS % 0.8 % (0.0-5.0); HEMATOCRIT. 45.4 % (42.0-52.0); LYMPHOCYTES % 32.9 % (20.0-50.0); MEAN CORPUSCULAR HEMOGLOBIN 31.8 pg (28.0-32.0); MEAN CORPUSCULAR VOLUME 96.4 fL (80.0-94.0); MEAN PLATELET VOLUME 8.1 fl (7.4-10.4); MONOCYTES % 8.3 % (2.0-8.0); NEUTROPHILS % 57.2 % (40.0-76.0); PLATELET 243 x1000/uL (130-400); RED BLOOD CELL COUNT 4.71 mill/uL (4.7-6.1); RED CELL DISTRIBUTION WIDTH 14.4 % (11.6-14.6)
[2022-11-05] MEDS ORDERED: MORPHINE SULFATE 4 MG/ML CPJ (NOT FOR IM USE) IV SCH (10:00)
[2022-11-05] MEDS ORDERED: ONDANSETRON HCL 4MG/2ML INJ IV SCH (10:00)
[2022-11-05 10:08] LABS: CHLORIDE 103 mEq/L (98-107); INDEX HEMOLYSI 1 (1-3); INDEX ICTERIC 1 (1-4); INDEX LIPEMIC 1 (1-3); POTASSIUM 3.8 mEq/L (3.5-5.1); PROTHROMBIN TIME 11.2 sec (9.6-11.0); SODIUM 135 mEq/L (136-145)
[2022-11-05 10:17] LABS: ALANINE AMINOTRANSFERASE 16 IU/L (13-61); ASPARTATE AMINOTRANSFERASE 10 IU/L (15-37); BILIRUBIN TOTAL 0.7 mg/dL (0.1-1.0); CALCIUM 9.1 mg/dL (8.5-10.1); CARBON DIOXIDE 31 mEq/L (21-32); GLUCOSE 108 mg/dL (70-105); PROTEIN TOTAL 7.6 g/dL (6.0-8.3); TROPONIN I HIGH SENSITIVITY 6 ng/L (<78); UREA NITROGEN BLOOD 12 mg/dL (7-21)
[2022-11-05 10:37] LABS: CLARITY URINE CLOUDY (CLEAR); COLOR URINE YELLOW (YELLOW); GLUCOSE URINE NEGATIVE (NEGATIVE); KETONES URINE NEGATIVE (NEGATIVE); LEUKOCYTE ESTERASE URINE NEGATIVE (NEGATIVE); NITRITE URINE NEGATIVE (NEGATIVE); OCCULT BLOOD URINE NEGATIVE (NEGATIVE); PH URINE 8.5 (4.5-8.0); PROTEIN URINE 1+ (NEGATIVE); SPECIFIC GRAVITY URINE 1.025 (1.005-1.030)
[2022-11-05 10:39] LABS: SQUAMOUS EPITHELIAL CELL URINE NONE SEEN /lpf (RARE/1+); YEAST URINE NONE SEEN
[2022-11-05 10:56] LABS: AMORPHOUS SEDIMENT URINE 1+ /lpf; BACTERIA URINE TRACE; RBC URINE 0-2 /hpf (0-2)
[2022-11-05] MEDS ORDERED: CEFTRIAXONE 1GM PREMIX 50 ML IV ONE (11:15)
[2022-11-05] MEDS ORDERED: ONDANSETRON HCL 4MG/2ML INJ IV ONE (12:45)
[2022-11-05 12:52] VITALS: BP 123/80; PULSE 70; RESP 13; TEMP 98.7
== END 2022-11-05 12:53 | disposition short-term general hospital (02) ==
LOC: ER 07:20 → CANBEDREQ 11:13 → ER 12:53
DX: R10.9 Unspecified abdominal pain (principal); F14.10 Cocaine abuse, uncomplicated; F12.10 Cannabis abuse, uncomplicated; Z79.899 Other long term (current) drug therapy
CPT/HCPCS: 80053; 81003; 83690; 85025; 85610; 84484; 36415; 71045; 93005; 96361; 96365; 96375; 96376; 99285; J0696; J2405; J2270; J7030; Z7610 ×2

== ENCOUNTER 2023-01-14 17:56 | Emergency (ER) | payer OTHER ==
[~2023-01-14] VITALS: Ht 175.3 cm; Wt 84.0 kg
[2023-01-14 18:07] VITALS: O2SAT 100
[2023-01-14] MEDS ORDERED: LEVETIRACETAM 500MG TABLET PO ONE (19:30)
[2023-01-14] MEDS ORDERED: HYDROCODONE/ACETAMINOPHEN 10/325MG TABLET PO ONE (19:30)
[2023-01-14] MEDS ORDERED: IBUPROFEN 800MG TABLET PO ONE (19:30)
[2023-01-14] MEDS ORDERED: CYCL5TAB MT (20:45)
[2023-01-14] MEDS ORDERED: DICL75TA5 MT (20:45)
[2023-01-14 21:09] VITALS: BP 141/91; PULSE 88; RESP 20; TEMP 99.1
== END 2023-01-14 21:09 | disposition home or self-care (01) ==
LOC: ER 17:56
DX: M54.2 Cervicalgia (principal); M54.50 Low back pain, unspecified; M79.672 Pain in left foot; V49.49XA Driver injured in collision with other motor vehicles in traffic accident, initial encounter; Y93.89 Activity, other specified; Y92.89 Other specified places as the place of occurrence of the external cause; Y99.8 Other external cause status
CPT/HCPCS: 72040; 72100; 99284

== ENCOUNTER 2023-03-10 08:02 | Emergency (ER) | payer OTHER ==
[~2023-03-10] VITALS: Ht 177.8 cm; Wt 80.0 kg
[~2023-03-10 08:02] MED LIST changes: +CYCL5TAB MT; +DICL75TA5 MT
[2023-03-10 08:04] VITALS: TEMP 98.6; O2SAT 99
[2023-03-10] MEDS ORDERED: ONDANSETRON HCL 4MG/2ML INJ IV STA (09:13)
[2023-03-10] MEDS ORDERED: MAGNESIUM/ALUMINUM HYDROXIDE/SIMETHICONE 30ML UDC PO ONE (09:15)
[2023-03-10] MEDS ORDERED: LEVETIRACETAM 1000MG PREMIX 100 ML IV ONE (09:15)
[2023-03-10 10:05] LABS: ALANINE AMINOTRANSFERASE 12 IU/L (10-49); ALBUMIN 4.4 g/dL (3.2-4.8); ASPARTATE AMINOTRANSFERASE 22 IU/L (<34); BILIRUBIN TOTAL 1.1 mg/dL (0.1-1.0); CALCIUM 9.5 mg/dL (8.7-10.4); CARBON DIOXIDE 21 mEq/L (21-32); CHLORIDE 101 mEq/L (98-107); CREATININE 0.9 mg/dL (0.6-1.3); GLUCOSE 92 mg/dL (70-105); POTASSIUM 4.4 mEq/L (3.5-5.1); PROTEIN TOTAL 7.9 g/dL (6.0-8.3); SODIUM 133 mEq/L (136-145); UREA NITROGEN BLOOD 10 mg/dL (9-23)
[2023-03-10 10:08] LABS: ETHANOL BLOOD < 10 mg/dL (<10)
[2023-03-10 10:35] LABS: BASOPHILS % 0.7 % (0.0-2.0); EOSINOPHILS % 0.4 % (0.0-5.0); HEMOGLOBIN. 14.9 g/dL (14.0-18.0); LYMPHOCYTES % 18.6 % (20.0-50.0); MEAN CORPUSCULAR HEMOGLOBIN 31.9 pg (28.0-32.0); MEAN CORPUSCULAR HGB CONC 32.4 g/dL (31.0-37.0); MEAN CORPUSCULAR VOLUME 98.6 fL (80.0-94.0); MEAN PLATELET VOLUME 7.6 fl (7.4-10.4); MONOCYTES % 9.5 % (2.0-8.0); NEUTROPHILS % 70.8 % (40.0-76.0); PLATELET 269 x1000/uL (130-400); RED BLOOD CELL COUNT 4.67 mill/uL (4.7-6.1); RED CELL DISTRIBUTION WIDTH 13.6 % (11.6-14.6); WHITE BLOOD COUNT 6.4 x1000/uL (4.5-11.0)
[2023-03-10] MEDS ORDERED: LEVETIRACETAM 1000MG PREMIX 100 ML IV NR (11:00)
[2023-03-10] MEDS ORDERED: MAGNESIUM/ALUMINUM HYDROXIDE/SIMETHICONE 30ML UDC PO NR (11:15)
[2023-03-10] MEDS ORDERED: ONDANSETRON HCL 4MG/2ML INJ IV NR (11:15)
[2023-03-10] MEDS ORDERED: MAG355OR21 MT (12:10)
[2023-03-10] MEDS ORDERED: FAMOTIDINE 20MG TABLET PO ONE (15:00)
[2023-03-10 15:21] VITALS: BP 135/72; PULSE 75; RESP 17
== END 2023-03-10 15:14 | disposition home or self-care (01) ==
LOC: ER 08:17
DX: R56.9 Unspecified convulsions (principal); R10.13 Epigastric pain; E87.1 Hypo-osmolality and hyponatremia; J45.909 Unspecified asthma, uncomplicated; K21.9 Gastro-esophageal reflux disease without esophagitis; F12.10 Cannabis abuse, uncomplicated; Z79.899 Other long term (current) drug therapy
CPT/HCPCS: 80053; 80320; 83690; 85025; 36415; 71045; 93005; 96365; 96375; 99285; J1953; J2405; Z7610 ×5; G0480

== ENCOUNTER 2023-06-01 08:44 | Emergency (ER) | payer MEDICAID, OTHER ==
[~2023-06-01] VITALS: Ht 177.8 cm; Wt 73.0 kg
[~2023-06-01 08:44] MED LIST changes: +MAG355OR21 MT
[2023-06-01 08:51] VITALS: O2SAT 98
[2023-06-01] MEDS ORDERED: LORAZEPAM 2MG/ML INJ IV ONE (09:30)
[2023-06-01] MEDS: LORAZEPAM 2MG/ML INJ IV NR (09:43)
[2023-06-01] MEDS: LEVETIRACETAM 1000MG PREMIX 100 ML IV ONE (09:47)
[2023-06-01] MEDS: SODIUM CHLORIDE 0.9% 1,000 ML IV ONE (09:47)
[2023-06-01] MEDS: LEVETIRACETAM 500MG PREMIX 100 ML IV ONE (09:47)
[2023-06-01 10:16] LABS: BASOPHILS % 0.6 % (0.0-2.0); DIFFERENTIAL COMMENT 0; EOSINOPHILS % 3.6 % (0.0-5.0); HEMATOCRIT. 45.4 % (42.0-52.0); HEMOGLOBIN. 13.7 g/dL (14.0-18.0); MEAN CORPUSCULAR HGB CONC 30.2 g/dL (31.0-37.0); MEAN CORPUSCULAR VOLUME 102.9 fL (80.0-94.0); MEAN PLATELET VOLUME 8.4 fl (7.4-10.4); MONOCYTES % 9.8 % (2.0-8.0); PLATELET 327 x1000/uL (130-400); RED BLOOD CELL COUNT 4.41 mill/uL (4.7-6.1); RED CELL DISTRIBUTION WIDTH 15.4 % (11.6-14.6); WHITE BLOOD COUNT 8.8 x1000/uL (4.5-11.0)
[2023-06-01 10:17] LABS: PROTHROMBIN TIME 11.4 sec (9.6-11.0)
[2023-06-01 10:25] LABS: ALANINE AMINOTRANSFERASE 15 IU/L (10-49); ALBUMIN 4.9 g/dL (3.2-4.8); ASPARTATE AMINOTRANSFERASE 23 IU/L (<34); BILIRUBIN TOTAL 0.4 mg/dL (0.1-1.0); CALCIUM 9.5 mg/dL (8.7-10.4); CHLORIDE 109 mEq/L (98-107); CREATININE 1.2 mg/dL (0.6-1.3); GLUCOSE 136 mg/dL (70-105); PROTEIN TOTAL 7.7 g/dL (6.0-8.3); SODIUM 144 mEq/L (136-145); UREA NITROGEN BLOOD 10 mg/dL (9-23)
[2023-06-01 10:32] LABS: ETHANOL BLOOD < 10 mg/dL (<10)
[2023-06-01 10:33] LABS: CARBON DIOXIDE < 10 mEq/L (21-32)
[2023-06-01 11:59] LABS: ALANINE AMINOTRANSFERASE 14 IU/L (10-49); ALBUMIN 4.3 g/dL (3.2-4.8); ASPARTATE AMINOTRANSFERASE 20 IU/L (<34); BILIRUBIN TOTAL 0.4 mg/dL (0.1-1.0); CARBON DIOXIDE 21 mEq/L (21-32); CHLORIDE 110 mEq/L (98-107); CREATININE 1.1 mg/dL (0.6-1.3); GLUCOSE 74 mg/dL (70-105); POTASSIUM 4.8 mEq/L (3.5-5.1); PROTEIN TOTAL 7.3 g/dL (6.0-8.3); SODIUM 138 mEq/L (136-145); UREA NITROGEN BLOOD 8 mg/dL (9-23)
[2023-06-01] MEDS ORDERED: KEPP500 MT (13:13)
[2023-06-01 14:38] VITALS: BP 125/72; PULSE 97; RESP 16; TEMP 98.3
== END 2023-06-01 14:53 | disposition home or self-care (01) ==
LOC: ER 09:00
DX: G40.909 Epilepsy, unspecified, not intractable, without status epilepticus (principal); J45.909 Unspecified asthma, uncomplicated; Z79.899 Other long term (current) drug therapy; Z88.6 Allergy status to analgesic agent
CPT/HCPCS: 80053; 80320; 85025; 85610; 36415; 96374; 96375; 96376; 99284; J1953; J2060; J7030; Z7610; G0480

== ENCOUNTER 2023-07-01 07:30 | Emergency (ER) | payer MEDICAID, OTHER ==
[~2023-07-01] VITALS: Ht 175.3 cm; Wt 88.0 kg
[2023-07-01 07:38] VITALS: BP 143/98; PULSE 68; RESP 16; TEMP 98.5; O2SAT 100
== END 2023-07-01 10:08 | disposition left against medical advice (07) ==
LOC: ER 07:30
DX: R10.9 Unspecified abdominal pain (principal); Z53.21 Procedure and treatment not carried out due to patient leaving prior to being seen by health care provider
CPT/HCPCS: 99281

== ENCOUNTER 2023-09-22 11:21 | Emergency (ER) | payer OTHER ==
[~2023-09-22] VITALS: Ht 175.3 cm; Wt 85.7 kg
[~2023-09-22 11:21] MED LIST changes: -ALPR1TAB2 PO; +ALPR2TAB2 MT; -ALPR2TAB2 PO; -CYCL10TA21 MT; -DICL75TA5 MT; -FAMO-135 MT; -FAMO40TA7 MT; -FAMO40TA7 PO; -FAMO40TA70 MT; -KEPP500 MT; -KEPPSOL GT; -LORA-250 MT; -LORA2TAB95 PO; -MAG355OR21 MT; -METO-293 MT; -NITR-87 MT; -OMEP20CA14 MT; -ONDA4TAB11 PO; -ONDA4TAB5 MT; -ONDA4TAB50 MT; -ONDA8TAB13 MT; -P50 MT; -PHEN100C4 MT; -PHEN300C6 MT; -PHEN300C6 PO; -VALP250C3 MT; -VALP250S4 PO
[2023-09-22 11:23] VITALS: O2SAT 95
[2023-09-22 11:49] VITALS: TEMP 98.5
[2023-09-22] MEDS: SODIUM CHLORIDE 0.9% 1,000 ML IV ONE (12:07)
[2023-09-22] MEDS: LEVETIRACETAM 1000MG PREMIX 100 ML IV ONE (12:07)
[2023-09-22 12:32] LABS: CHLORIDE 109 mEq/L (98-107); POTASSIUM 4.3 mEq/L (3.5-5.1); SODIUM 138 mEq/L (136-145)
[2023-09-22 12:33] LABS: CARBON DIOXIDE 27 mEq/L (21-32)
[2023-09-22 12:38] LABS: GLUCOSE 110 mg/dL (70-105); UREA NITROGEN BLOOD 11 mg/dL (9-23)
[2023-09-22 12:42] LABS: ETHANOL BLOOD < 10 mg/dL (<10); PHENOBARBITAL < 3.0 ug/mL (15.0-40.0)
[2023-09-22 12:43] LABS: CARBAMAZEPINE < 0.4 ug/mL (4-12)
[2023-09-22 12:44] LABS: PHENYTOIN < 2.0 ug/mL (10-20); VALPROIC ACID < 3.0 ug/mL (50-100)
[2023-09-22] MEDS: PHENYTOIN SODIUM 1,000 MG in SODIUM CHLORIDE 0.9% 100 ML IV ONE (13:09)
[2023-09-22] MEDS: LORAZEPAM 2MG/ML INJ IV PRN (13:22)
[2023-09-22 16:09] LABS: CLARITY URINE CLEAR (CLEAR); COLOR URINE YELLOW (YELLOW); GLUCOSE URINE NEGATIVE (NEGATIVE); KETONES URINE NEGATIVE (NEGATIVE); LEUKOCYTE ESTERASE URINE NEGATIVE (NEGATIVE); NITRITE URINE NEGATIVE (NEGATIVE); OCCULT BLOOD URINE NEGATIVE (NEGATIVE); PH URINE 5.5 (4.5-8.0); PROTEIN URINE NEGATIVE (NEGATIVE); SPECIFIC GRAVITY URINE 1.016 (1.005-1.030); UROBILINOGEN URINE 0.2 E.U./dL (0.2-1.0)
[2023-09-22 16:20] LABS: *AMPHETAMINES SCREEN URINE NEGATIVE (NEGATIVE); *BARBITURATES SCREEN URINE NEGATIVE (NEGATIVE); *BENZODIAZEPINES SCREEN URINE PRESUMPTIVE POSITIVE (NEGATIVE); *COCAINE SCREEN URINE NEGATIVE (NEGATIVE); METHADONE URINE SCREEN NEGATIVE (NEGATIVE)
[2023-09-22 16:21] LABS: CANNABINOID URINE SCREEN PRESUMPTIVE POSITIVE (NEGATIVE); ECSTASY MDMA SCREEN URINE NEGATIVE (NEGATIVE); OPIATES URINE SCREEN NEGATIVE (NEGATIVE); PHENCYCLIDINE URINE SCREEN NEGATIVE (NEGATIVE)
[2023-09-22 16:56] LABS: HEMATOCRIT 38.7 % (42.0-52.0); HEMOGLOBIN 12.9 g/dL (14.0-18.0); MEAN CORPUSCULAR HEMOGLOBIN 31.6 pg (28.0-32.0); MEAN CORPUSCULAR HGB CONC 33.2 g/dL (31.0-37.0); MEAN CORPUSCULAR VOLUME 95.2 fL (80.0-94.0); PLATELET 210 x1000/uL (130-400); RED BLOOD CELL COUNT 4.07 mill/uL (4.7-6.1); RED CELL DISTRIBUTION WIDTH 16.7 % (11.6-14.6); WHITE BLOOD COUNT 4.3 x1000/uL (4.5-11.0)
[2023-09-22 17:07] VITALS: BP 102/54; PULSE 66; RESP 13
== END 2023-09-22 17:48 | disposition left against medical advice (07) ==
LOC: ER 11:21 → EDBEDREQ 14:40 → EDBEDREQTM 16:58 → EDBEDREQ 16:58 → ER 17:48
DX: G40.901 Epilepsy, unspecified, not intractable, with status epilepticus (principal); J45.909 Unspecified asthma, uncomplicated; Z88.6 Allergy status to analgesic agent; Z79.899 Other long term (current) drug therapy
CPT/HCPCS: 80305; 80048; 81003; 80320; 80156; 80185; 80184; 80165; 85027; 36415; 96367; 96365; 96375; 99291; J1953; J2060; J1165; J7050; J7030; G0480

== ENCOUNTER 2023-11-19 09:44 | Emergency (ER) | payer OTHER ==
[~2023-11-19] VITALS: Ht 175.3 cm; Wt 80.0 kg
[~2023-11-19 09:44] MED LIST changes: +CARB100T12 PO; -CARB100T4 PO
[2023-11-19 09:51] VITALS: PULSE 75; TEMP 98.3; O2SAT 99
[2023-11-19 11:00] VITALS: BP 121/85; RESP 16
[2023-11-19] MEDS: LIDOCAINE 5% PATCH TOP SCH (11:00)
[2023-11-19] MEDS: METHOCARBAMOL 500MG TABLET PO ONE (11:00)
[2023-11-19] MEDS ORDERED: METH-653 MT (12:40)
[2023-11-19] MEDS ORDERED: LIDO700A15 TP (12:40)
== END 2023-11-19 13:16 | disposition home or self-care (01) ==
LOC: ER 09:57
DX: M54.9 Dorsalgia, unspecified (principal); J45.909 Unspecified asthma, uncomplicated; K21.9 Gastro-esophageal reflux disease without esophagitis; Z98.890 Other specified postprocedural states; Z79.899 Other long term (current) drug therapy; Z88.6 Allergy status to analgesic agent
CPT/HCPCS: 99283

== ENCOUNTER 2024-01-08 11:55 | Emergency (ER) | payer OTHER ==
[~2024-01-08] VITALS: Ht 185.4 cm; Wt 100.0 kg
[~2024-01-08 11:55] MED LIST changes: +LIDO700A15 TP; +METH-653 MT
[2024-01-08 11:56] VITALS: O2SAT 100
[2024-01-08] MEDS: LEVETIRACETAM 500MG PREMIX 100 ML IV ONE (13:19)
[2024-01-08] MEDS: ONDANSETRON HCL 4MG/2ML INJ IV ONE (13:19)
[2024-01-08 14:25] LABS: BASOPHILS % 0.4 % (0.0-2.0); EOSINOPHILS % 0.3 % (0.0-5.0); HEMOGLOBIN. 14.4 g/dL (14.0-18.0); LYMPHOCYTES % 16.7 % (20.0-50.0); MEAN CORPUSCULAR HEMOGLOBIN 32.6 pg (28.0-32.0); MEAN CORPUSCULAR HGB CONC 33.4 g/dL (31.0-37.0); MEAN CORPUSCULAR VOLUME 97.5 fL (80.0-94.0); MEAN PLATELET VOLUME 8.1 fl (7.4-10.4); MONOCYTES % 5.6 % (2.0-8.0); PLATELET 237 x1000/uL (130-400); RED BLOOD CELL COUNT 4.41 mill/uL (4.7-6.1); RED CELL DISTRIBUTION WIDTH 15.1 % (11.6-14.6); WHITE BLOOD COUNT 6.2 x1000/uL (4.5-11.0)
[2024-01-08 14:36] LABS: CHLORIDE 104 mEq/L (98-107); POTASSIUM 3.9 mEq/L (3.5-5.1); SODIUM 137 mEq/L (136-145)
[2024-01-08 14:37] LABS: CARBON DIOXIDE 25 mEq/L (21-32)
[2024-01-08 14:38] LABS: CALCIUM 9.5 mg/dL (8.7-10.4)
[2024-01-08 14:42] LABS: UREA NITROGEN BLOOD 10 mg/dL (9-23)
[2024-01-08 14:43] LABS: GLUCOSE 100 mg/dL (70-105)
[2024-01-08 14:44] LABS: ALANINE AMINOTRANSFERASE 17 IU/L (10-49); ALBUMIN 4.6 g/dL (3.2-4.8); ASPARTATE AMINOTRANSFERASE 24 IU/L (<34)
[2024-01-08 14:45] LABS: BILIRUBIN DIRECT 0.3 mg/dL (<=3.0); BILIRUBIN TOTAL 1.1 mg/dL (0.1-1.0); PROTEIN TOTAL 7.8 g/dL (6.0-8.3)
[2024-01-08] MEDS: PANTOPRAZOLE 40MG DR TABLET PO ONE (14:53)
[2024-01-08 15:01] LABS: ETHANOL BLOOD < 10 mg/dL (<10); PHENYTOIN < 2.0 ug/mL (10-20)
[2024-01-08] MEDS ORDERED: CARB100T12 PO (15:08)
[2024-01-08] MEDS ORDERED: KEPP500 PO (15:08)
[2024-01-08] MEDS ORDERED: PHEN100C4 PO (15:08)
[2024-01-08] MEDS ORDERED: ONDA-239 PO (15:08)
[2024-01-08] MEDS: HALOPERIDOL LACTATE 5MG/ML VIAL IM ONE (16:07)
[2024-01-08] MEDS: PANTOPRAZOLE SODIUM 40 MG/VIAL IV ONE (16:07)
[2024-01-08] MEDS: PHENYTOIN SODIUM EXTENDED 100MG CAPSULE PO ONE (16:08)
[2024-01-08 17:07] VITALS: BP 118/60; PULSE 72; RESP 12; TEMP 36.66960; O2SAT 100
[2024-01-08 17:27] LABS: CLARITY URINE CLEAR (CLEAR); COLOR URINE DARK YELLOW (YELLOW); GLUCOSE URINE NEGATIVE (NEGATIVE); KETONES URINE 4+ (NEGATIVE); LEUKOCYTE ESTERASE URINE 1+ (NEGATIVE); NITRITE URINE NEGATIVE (NEGATIVE); OCCULT BLOOD URINE NEGATIVE (NEGATIVE); PROTEIN URINE 1+ (NEGATIVE); SPECIFIC GRAVITY URINE 1.034 (1.005-1.030)
[2024-01-08 17:39] LABS: *AMPHETAMINES SCREEN URINE NEGATIVE (NEGATIVE); *BARBITURATES SCREEN URINE NEGATIVE (NEGATIVE); *BENZODIAZEPINES SCREEN URINE PRESUMPTIVE POSITIVE (NEGATIVE); *COCAINE SCREEN URINE PRESUMPTIVE POSITIVE (NEGATIVE); METHADONE URINE SCREEN NEGATIVE (NEGATIVE); OPIATES URINE SCREEN NEGATIVE (NEGATIVE); PHENCYCLIDINE URINE SCREEN NEGATIVE (NEGATIVE)
[2024-01-08 17:40] LABS: CANNABINOID URINE SCREEN PRESUMPTIVE POSITIVE (NEGATIVE); ECSTASY MDMA SCREEN URINE NEGATIVE (NEGATIVE)
[2024-01-08 17:44] LABS: BACTERIA URINE TRACE; RBC URINE 0-2 /hpf (0-2); SQUAMOUS EPITHELIAL CELL URINE 1+ /lpf (RARE/1+)
== END 2024-01-08 17:23 | disposition home or self-care (01) ==
LOC: ER 11:55
DX: R56.9 Unspecified convulsions (principal); F12.90 Cannabis use, unspecified, uncomplicated; Z79.899 Other long term (current) drug therapy; Z88.6 Allergy status to analgesic agent
CPT/HCPCS: 80076; 80305; 80048; 81003; 80320; 80185; 83690; 85025; 36415; 96365; 96366; 96372; 96375; 99284; J1953; J1630; J2405; J2470; Z7610 ×4; G0480

== ENCOUNTER 2024-02-23 17:24 | Emergency (ER) | payer OTHER ==
[~2024-02-23] VITALS: Ht 175.3 cm; Wt 86.0 kg
[~2024-02-23 17:24] MED LIST changes: -CYCL5TAB MT; +CYCL5TAB3 MT; +ONDA-239 PO
[2024-02-23 17:28] VITALS: BP 121/56; RESP 16; TEMP 97.6; O2SAT 99
[2024-02-23 17:42] VITALS: PULSE 94; O2SAT 99
[2024-02-23] MEDS ORDERED: ACET-2708 MT (21:14)
[2024-02-23] MEDS: ACETAMINOPHEN 500MG TABLET PO ONE (21:29)
[2024-02-29] MEDS ORDERED: LACO100T2 PO (13:14)
== END 2024-02-23 21:32 | disposition home or self-care (01) ==
LOC: ER 17:24
DX: S09.90XA Unspecified injury of head, initial encounter (principal); M54.50 Low back pain, unspecified; F41.9 Anxiety disorder, unspecified; Z98.890 Other specified postprocedural states; Z79.899 Other long term (current) drug therapy; V49.40XA Driver injured in collision with unspecified motor vehicles in traffic accident, initial encounter; Y93.89 Activity, other specified; Y92.89 Other specified places as the place of occurrence of the external cause; Y99.8 Other external cause status
CPT/HCPCS: 99282

== ENCOUNTER 2024-03-25 09:41 | Emergency (ER) | payer OTHER ==
[~2024-03-25] VITALS: Ht 177.8 cm; Wt 75.0 kg
[~2024-03-25 09:41] MED LIST changes: -CARB100T12 PO; -CYCL5TAB3 MT; -FAMO-135 PO; -KEPP500 PO; +LACO100T2 PO; -LIDO700A15 TP; -METH-653 MT; -ONDA-239 PO
[2024-03-25 09:42] VITALS: O2SAT 99
[2024-03-25 10:31] LABS: BASOPHILS % 0.6 % (0.0-2.0); DIFFERENTIAL COMMENT 0; EOSINOPHILS % 2.7 % (0.0-5.0); HEMATOCRIT. 43.1 % (42.0-52.0); HEMOGLOBIN. 14.3 g/dL (14.0-18.0); LYMPHOCYTES % 29.2 % (20.0-50.0); MEAN CORPUSCULAR HEMOGLOBIN 33.3 pg (28.0-32.0); MEAN CORPUSCULAR HGB CONC 33.1 g/dL (31.0-37.0); MEAN CORPUSCULAR VOLUME 100.6 fL (80.0-94.0); MEAN PLATELET VOLUME 8.5 fl (7.4-10.4); MONOCYTES % 9.6 % (2.0-8.0); NEUTROPHILS % 57.9 % (40.0-76.0); PLATELET 187 x1000/uL (130-400); RED BLOOD CELL COUNT 4.28 mill/uL (4.7-6.1); RED CELL DISTRIBUTION WIDTH 15.3 % (11.6-14.6); WHITE BLOOD COUNT 4.9 x1000/uL (4.5-11.0)
[2024-03-25] MEDS: LEVETIRACETAM 1000MG PREMIX 100 ML IV NR (10:35)
[2024-03-25 12:30] VITALS: BP 116/65; PULSE 70; RESP 16; TEMP 36.83628; O2SAT 99
[2024-03-25] MEDS ORDERED: HYDROCODONE/ACETAMINOPHEN 5/325MG TABLET PO PRN (14:15)
[2024-03-25] MEDS ORDERED: ONDANSETRON HCL 4MG/2ML INJ IV PRN (14:15)
[2024-03-25] MEDS ORDERED: IPRATROPIUM/ALBUTEROL 0.5-3(2.5)MG/3ML NEB HHN PRN (14:15)
[2024-03-25] MEDS ORDERED: ENOXAPARIN 40MG/0.4ML SYR SUBCUT SCH (16:00)
[2024-03-25] MEDS ORDERED: PHENYTOIN SODIUM EXTENDED 100MG CAPSULE PO SCH (17:00)
[2024-03-25] MEDS ORDERED: LACOSAMIDE 100MG TABLET PO SCH (21:00)
== END 2024-03-25 16:05 | disposition left against medical advice (07) ==
LOC: ER 09:41 → EDBEDREQ 10:22 → EDBEDREQTM 13:15 → ER 16:05
DX: G40.409 Other generalized epilepsy and epileptic syndromes, not intractable, without status epilepticus (principal); F41.9 Anxiety disorder, unspecified; F12.90 Cannabis use, unspecified, uncomplicated; F10.90 Alcohol use, unspecified, uncomplicated; Z79.899 Other long term (current) drug therapy; Z88.6 Allergy status to analgesic agent; Y90.9 Presence of alcohol in blood, level not specified
CPT/HCPCS: 85025; 36415; 70450; 96365; 99291; J1953; Z7610 ×2; A4606

== ENCOUNTER 2024-05-02 11:38 | Emergency (ER) | payer OTHER ==
[~2024-05-02] VITALS: Ht 167.6 cm; Wt 77.0 kg
[2024-05-02 11:41] VITALS: O2SAT 99
[2024-05-02 12:33] VITALS: BP 128/80; PULSE 66; RESP 18; TEMP 36.9; O2SAT 100
[2024-05-02 12:42] LABS: BASOPHILS % 0.4 % (0.0-2.0); EOSINOPHILS % 3.5 % (0.0-5.0); HEMATOCRIT. 40.6 % (42.0-52.0); HEMOGLOBIN. 13.8 g/dL (14.0-18.0); LYMPHOCYTES % 29.9 % (20.0-50.0); MEAN CORPUSCULAR HEMOGLOBIN 33.7 pg (28.0-32.0); MEAN CORPUSCULAR HGB CONC 33.9 g/dL (31.0-37.0); MEAN CORPUSCULAR VOLUME 99.2 fL (80.0-94.0); MEAN PLATELET VOLUME 7.6 fl (7.4-10.4); MONOCYTES % 8.9 % (2.0-8.0); NEUTROPHILS % 57.3 % (40.0-76.0); PLATELET 229 x1000/uL (130-400); RED BLOOD CELL COUNT 4.09 mill/uL (4.7-6.1); RED CELL DISTRIBUTION WIDTH 15.3 % (11.6-14.6)
[2024-05-02 12:53] LABS: CHLORIDE 106 mEq/L (98-107); POTASSIUM 3.9 mEq/L (3.5-5.1); SODIUM 138 mEq/L (136-145)
[2024-05-02 12:54] LABS: CARBON DIOXIDE 27 mEq/L (21-32)
[2024-05-02 12:59] LABS: GLUCOSE 112 mg/dL (70-105); UREA NITROGEN BLOOD 11 mg/dL (9-23)
[2024-05-02] MEDS ORDERED: AMOX-494 MT (13:05)
== END 2024-05-02 13:33 | disposition home or self-care (01) ==
LOC: ER 11:38
DX: G40.901 Epilepsy, unspecified, not intractable, with status epilepticus (principal); J18.9 Pneumonia, unspecified organism
CPT/HCPCS: 36415; 71045; 80048; 85025; 99284

== ENCOUNTER 2024-07-05 11:50 | Emergency (ER) | payer OTHER ==
[~2024-07-05] VITALS: Ht 172.7 cm; Wt 89.0 kg
[~2024-07-05 11:50] MED LIST changes: +AMOX-494 MT
[2024-07-05 11:55] VITALS: O2SAT 98
[2024-07-05 12:10] VITALS: TEMP 37.3
[2024-07-05 12:37] LABS: BASOPHILS % 0.7 % (0.0-2.0); EOSINOPHILS % 0.6 % (0.0-5.0); HEMATOCRIT. 42.8 % (42.0-52.0); HEMOGLOBIN. 14.1 g/dL (14.0-18.0); LYMPHOCYTES % 24.5 % (20.0-50.0); MEAN CORPUSCULAR HEMOGLOBIN 32.8 pg (28.0-32.0); MEAN CORPUSCULAR VOLUME 99.3 fL (80.0-94.0); MEAN PLATELET VOLUME 8.7 fl (7.4-10.4); MONOCYTES % 8.5 % (2.0-8.0); NEUTROPHILS % 65.7 % (40.0-76.0); PLATELET 277 x1000/uL (130-400); RED BLOOD CELL COUNT 4.31 mill/uL (4.7-6.1); RED CELL DISTRIBUTION WIDTH 15.9 % (11.6-14.6); WHITE BLOOD COUNT 5.8 x1000/uL (4.5-11.0)
[2024-07-05 12:38] LABS: CHLORIDE 105 mEq/L (98-107); POTASSIUM 5.9 mEq/L (3.5-5.1); SODIUM 136 mEq/L (136-145)
[2024-07-05 12:39] LABS: CALCIUM 9.3 mg/dL (8.7-10.4); CARBON DIOXIDE 14 mEq/L (21-32)
[2024-07-05 12:44] LABS: CREATININE 1.2 mg/dL (0.6-1.3); GLUCOSE 102 mg/dL (70-105); UREA NITROGEN BLOOD 15 mg/dL (9-23)
[2024-07-05] MEDS ORDERED: LEVETIRACETAM 500MG PREMIX 100 ML IV ONE (13:15)
[2024-07-05] MEDS: PHENYTOIN SODIUM EXTENDED 100MG CAPSULE PO ONE (13:23)
[2024-07-05] MEDS: LACOSAMIDE 100MG TABLET PO SCH (13:38)
[2024-07-05] MEDS: LEVETIRACETAM 500MG PREMIX 100 ML IV NR (13:39)
[2024-07-05 13:42] VITALS: BP 92/51; PULSE 87; RESP 20; O2SAT 99
[2024-07-05] MEDS ORDERED: PHEN100C4 PO (13:49)
[2024-07-05] MEDS ORDERED: LEVE1000 MT (13:49)
[2024-07-05] MEDS ORDERED: LACO100T2 PO (13:49)
== END 2024-07-05 14:10 | disposition home or self-care (01) ==
LOC: ER 11:50
DX: R56.9 Unspecified convulsions (principal); Z79.899 Other long term (current) drug therapy; Z88.6 Allergy status to analgesic agent
CPT/HCPCS: 80048; 85025; 36415; 80339; 93005; 96365; 99284; J1953; Z7610 ×2; A4606